=== PATIENT | male | born 1940 | race Caucasian/White ===

== ENCOUNTER → 2018-04-08 | Outpatient (CLI) | payer MEDICARE ==
--- NOTE | 2018-04-08 22:45 | CT ---
EXAMINATION TYPE: CT abdomen pelvis wo con DATE OF EXAM: 04/08/2018 COMPARISON: NONE INDICATION: Lower abd pain for a few weeks. DLP: 1205.3 mGycm, Automated exposure control for dose reduction was used. CONTRAST: 0 mL of Isovue 300. Study performed without Oral Contrast TECHNIQUE: Axial images were obtained from above the diaphragm to the pubic rami in the axial plane a t 5 mm thick sections. Reconstructed images are reviewed on the computer in the coronal plane. FINDINGS: Limited CT sections are obtained the lung bases. The lung bases are clear. CT ABDOMEN: Liver: Normal Spleen: Normal Pancreas: Normal Adrenal glands: The adrenal glands are normal. Gallbladder: Normal Kidneys: No masses are evident. No hydronephrosis is present. There is a 3.2 cm cyst measuring 14 H [place]unsfield units on the lateral left mid kidney. There is a 2.8 cm cyst measuring 17 Hounsfield units on the inferior pole right kidney. There is marked left hydronephrosis. Perinephric stranding is pre sent. Left hydroureter is present there is mild to moderate right hydronephrosis and hydroureter Aorta: Vascular calcification is within the aorta. Inferior vena cava: Normal. CT PELVIS: Loops of bowel within the abdomen and pelvis are normal. There are loops of bowel which are incom pletely distended or lack oral contrast limiting their evaluation. Appendix: Normal as visualized. Urinary bladder: There is marked distention of the urinary bladder. All of obstruction may be present . There is marked prominence of the prostate. Genitourinary structures: Prostate is very prominent and contains calcification. Prostate appears cecy ewhat lobulated suggesting possibility of underlying cancer. Elevated obstruction may be present. Add itional workup is recommended. Osseous structures: No suspicious lytic or sclerotic lesions. IMPRESSIONS: 1. Marked prominence of the prostate which appears mildly lobulated. Prostate cancer should be consi dered. This may be contributing to outlet obstruction of the urinary bladder. 2. Urinary bladder with marked distention. Severe left and moderate right hydronephrosis is present w ith hydroureter.
== END | disposition home or self-care (01) ==
LOC: RADCTMAIN 15:23
PROVIDERS: ATTEND Family Medicine
DX: N13.39 Other hydronephrosis (principal); N32.89 Other specified disorders of bladder; N42.9 Disorder of prostate, unspecified
CPT/HCPCS: 74176

== ENCOUNTER → 2018-05-12 | Outpatient (CLI) | payer MEDICARE ==
--- NOTE | 2018-05-12 11:11 | US ---
EXAMINATION TYPE: US kidneys/renal and bladder DATE OF EXAM: 05/12/2018 COMPARISON: CT abdomen and pelvis April 08, 2018 CLINICAL HISTORY: R33.9 Urinary Retention. EXAM MEASUREMENTS: Right Kidney: 9.9 x 5.2 x 6.7 cm Left Kidney: 11.6 x 5.8 x 5.2 cm Quinones catheter in place; patient could not find clamp to close for full bladder. No clamp found by c ursory look by technologist Right Kidney: No hydronephrosis or masses seen Left Kidney: 2.6 x 3.0 x 2.8 cm cyst anterior aspect Bladder: quinones There is no evidence for hydronephrosis at this point in time. Cortical thinning in both kidneys is p resent. There is 2.6 x 3.0 cm simple appearing cyst laterally left kidney redemonstrated . No nephrol ithiasis is seen. No masses are identified. Quinones catheter is placed within the bladder which is meagan s suboptimally evaluated. There is surrounding tissue may reflect location within prostatic urethra, correlate clinically. IMPRESSION: Suboptimal study with interval resolution of hydronephrosis bilaterally after Quinones catheterization.
== END | disposition home or self-care (01) ==
LOC: RADUSWWP 08:32
PROVIDERS: ATTEND Urology
DX: R33.9 Retention of urine, unspecified (principal)
CPT/HCPCS: 76770

== ENCOUNTER → 2018-06-27 | Outpatient (CLI) | payer MEDICARE ==
--- NOTE | 2018-06-27 15:13 | FL ---
EXAMINATION TYPE: FL voiding cystourethrogram DATE OF EXAM: 06/27/2018 2:01 PM COMPARISON: None HISTORY: S37.29X Bladder Rupture Preliminary film demonstrates only catheter in place. Bowel gas pattern is unremarkable. 2min 40sec fl time Approximately 300 cc of Cystografin was instilled into the urinary bladder in a retrograde manner. T he urinary bladder demonstrates a normal morphology and appearance. No filling defects are seen. Th ere is no evidence for reflux. There is no evidence for leak or bladder rupture. IMPRESSION: 1. No evidence for leak or bladder rupture at this time.
== END | disposition home or self-care (01) ==
LOC: RADFLWHC 13:20
PROVIDERS: ATTEND Urology
DX: S37.29XA Other injury of bladder, initial encounter (principal)
CPT/HCPCS: 74455; Q9962

== ENCOUNTER 2020-03-24 12:12 | Inpatient (IN) | payer MEDICARE ==
[2020-03-24 12:57] LABS: Basophils % (A) 0 %; Eosinophils # (A) 0.1 k/uL (0-0.7); Eosinophils % (A) 1 %; HCT 48.2 % (39.0-53.0); Lymphocytes # (A) 1.8 k/uL (1.0-4.8); Lymphocytes % (A) 13 %; MCH 31.1 pg (25.0-35.0); MCHC 33.1 g/dL (31.0-37.0); Mean Platelet Volume 9.2; Monocytes # (A) 0.8 k/uL (0-1.0); Monocytes % (A) 6 %; Neutrophils # (A) 10.4 k/uL (1.3-7.7); Neutrophils % (A) 79 %; Platelet Count 201 k/uL (150-450); RBC 5.13 m/uL (4.30-5.90); RDW 12.9 % (11.5-15.5); WBC 13.3 k/uL (3.8-10.6)
[2020-03-24 13:07] LABS: Albumin 4.2 g/dL (3.5-5.0); Calcium 9.3 mg/dL (8.4-10.2); Magnesium 2.1 mg/dL (1.6-2.3); Potassium 4.7 mmol/L (3.5-5.1); Total Bilirubin 1.3 mg/dL (0.2-1.3); Total Protein 7.5 g/dL (6.3-8.2)
[2020-03-24 13:10] LABS: INR 1.3 (<1.2); Partial Thromboplastin Time 23.5 sec (22.0-30.0); Prothrombin Time 13.2 sec (9.0-12.0)
--- NOTE | 2020-03-24 13:34 | ED ---
SOB HPI - General Chief Complaint: Shortness of Breath Stated Complaint: Memory loss Time Seen by Provider: 03/24/20 12:18 Source: patient Mode of arrival: wheelchair Limitations: no limitations - History of Present Illness Initial Comments: Patient is a 71-year-old male who presents to the emergency room in with reported shortness of breath, dizziness and lightheadedness when standing. Patient states the symptoms have been present for the past several months however they're progressively getting worse. He did have a neighbor who was at his house he noted he was short of breath. He did recommend he come in to the emergency room for evaluation. The patient is a poor historian. Unsure of his medications or medical history. He denies a history of COPD. No history of DVT or PE. Has history of A. fib however no OK. Patient takes Coumadin. He admits to a mild headache and pressure upon standing. Denies any current headache. No chest pain. No cough or hemoptysis. No ripping or tearing sensation to the back. Neighbor notes that the patient has had more confusion recently. The patient denies any changes in his bowel or bladder habits. There are no alleviating, precipitating or modifying factors - Related Data Home Medications Medication Instructions Recorded Confirmed Allopurinol [Zyloprim] 100 mg PO DAILY 03/24/20 03/24/20 Atenolol [Tenormin] 50 mg PO BID 03/24/20 03/24/20 Atorvastatin [Lipitor] 40 mg PO DAILY 03/24/20 03/24/20 Enalapril [Vasotec] 5 mg PO DAILY 03/24/20 03/24/20 Furosemide [Lasix] 40 mg PO DAILY 03/24/20 03/24/20 Levothyroxine Sodium [Synthroid] 112 mcg PO DAILY 03/24/20 03/24/20 Potassium Chloride ER [K-Dur 20] 20 meq PO BID 03/24/20 03/24/20 Tamsulosin HCl [Flomax] 0.4 mg PO DAILY 03/24/20 03/24/20 Warfarin [Coumadin] 2.5 mg PO SUMOWEFR 03/24/20 03/24/20 Warfarin [Coumadin] 5 mg PO TUTHSA 03/24/20 03/24/20 Allergies Allergy/AdvReac Type Severity Reaction Status Date / Time No Known Allergies Allergy Verified 03/24/20 18:19 Review of Systems ROS Statement: Those systems with pertinent positive or pertinent negative responses have been documented in the HPI. ROS Other: All systems not noted in ROS Statement are negative. Past Medical History Past Medical History: Unable to Obtain History of Any Multi-Drug Resistant Organisms: None Reported Past Surgical History: Unable to Obtain Past Psychological History: Unable to Obtain Smoking Status: Former smoker Past Alcohol Use History: None Reported Past Drug Use History: None Reported - Past Family History Mother Additional Family Medical History / Comment(s): of old age Brother(s) Family Medical History: Cancer, Coronary Artery Disease (CAD) General Exam Limitations: no limitations General appearance: alert, in no apparent distress Head exam: Present: atraumatic, normocephalic, normal inspection Eye exam: Present: normal appearance, PERRL, EOMI. Absent: scleral icterus, conjunctival injection, periorbital swelling ENT exam: Present: normal exam, mucous membranes moist Neck exam: Present: normal inspection. Absent: tenderness, meningismus, lymphadenopathy Respiratory exam: Present: normal lung sounds bilaterally. Absent: respiratory distress, wheezes, rales, rhonchi, stridor Cardiovascular Exam: Present: regular rate, normal rhythm, normal heart sounds. Absent: systolic murmur, diastolic murmur, rubs, gallop, clicks GI/Abdominal exam: Present: soft, normal bowel sounds. Absent: distended, tenderness, guarding, rebound, rigid Extremities exam: Present: normal inspection, full ROM, normal capillary refill. Absent: tenderness, pedal edema, joint swelling, calf tenderness Back exam: Present: normal inspection Neurological exam: Present: alert, oriented X3, CN II-XII intact Psychiatric exam: Present: normal affect, normal mood Skin exam: Present: warm, dry, intact, normal color. Absent: rash Course Vital Signs 03/24/20 03/24/20 03/24/20 12:15 14:56 15:55 Temperature 97.6 F Pulse Rate 80 81 80 Pulse Rate [ Pulse Oximetery ] Respiratory 18 16 Rate Blood Pressure 119/83 120/80 Blood Pressure [Left Arm] O2 Sat by Pulse 96 99 Oximetry 03/24/20 03/24/20 03/24/20 16:04 17:28 17:54 Temperature 98.0 F Pulse Rate 62 86 Pulse Rate [ 92 Pulse Oximetery ] Respiratory 16 20 Rate Blood Pressure 118/79 Blood Pressure 122/86 [Left Arm] O2 Sat by Pulse 99 95 Oximetry Medical Decision Making - Medical Decision Making Upon arrival the patient was placed into room 5. A thorough History and physical exam is performed. 12-lead EKG is performed which demonstrates keep inverted T waves in V1 through V4. Patient having any chest pain at this time. Peripheral IV established. Laboratory studies were conducted. Patient had a chest x-ray performed. Laboratory studies are remarkable for a leukocytosis of 13.3. INR subtherapeutic at 1.3. Creatinine 1.4 which is normal for the patient. UA shows large esterase and rare bacteria. Chest x-ray demonstrates no acute intrathoracic process. The patient was given a DuoNeb breathing treatment as he is diffusely wheezy. He is to supplement with 125 mg Solu-M edrol. Recommend hospital admission for continued breathing treatments and echo. Patient did agree to this. I discussed case with Dr. Man who accept admission. Patient remained in stable condition and was transported to floor - Lab Data Result diagrams: 03/26/20 07:05 03/26/20 15:16 Lab Results 03/24/20 03/24/20 03/24/20 Range/Units 12:35 12:35 12:35 WBC 13.3 H (3.8-10.6) k/uL RBC 5.13 (4.30-5.90) m/uL Hgb 16.0 (13.0-17.5) gm/dL Hct 48.2 (39.0-53.0) % MCV 94.0 (80.0-100.0) fL MCH 31.1 (25.0-35.0) pg MCHC 33.1 (31.0-37.0) g/dL RDW 12.9 (11.5-15.5) % Plt Count 201 (150-450) k/uL Neutrophils % 79 % Lymphocytes % 13 % Monocytes % 6 % Eosinophils % 1 % Basophils % 0 % Neutrophils # 10.4 H (1.3-7.7) k/uL Lymphocytes # 1.8 (1.0-4.8) k/uL Monocytes # 0.8 (0-1.0) k/uL Eosinophils # 0.1 (0-0.7) k/uL Basophils # 0.0 (0-0.2) k/uL Hypochromasia PT 13.2 H (9.0-12.0) sec INR 1.3 H (<1.2) APTT 23.5 (22.0-30.0) sec D-Dimer (<0.60) mg/L FEU Sodium 139 (137-145) mmol/L Potassium 4.7 (3.5-5.1) mmol/L Chloride 101 (98-107) mmol/L Carbon Dioxide 27 (22-30) mmol/L Anion Gap 11 mmol/L BUN 33 H (9-20) mg/dL Creatinine 1.40 H (0.66-1.25) mg/dL Est GFR (CKD-EPI)AfAm 55 (>60 ml/min/1.73 sqM) Est GFR (CKD-EPI)NonAf 48 (>60 ml/min/1.73 sqM) Glucose 179 H (74-99) mg/dL POC Glucose (mg/dL) (75-99) mg/dL POC Glu Final Inspector Movement Assembly ID Estimated Ave Glu mg/dL Hemoglobin A1c (4.0-6.0) % Plasma Lactic Acid Db (0.7-2.0) mmol/L Calcium 9.3 (8.4-10.2) mg/dL Magnesium 2.1 (1.6-2.3) mg/dL Total Bilirubin 1.3 (0.2-1.3) mg/dL AST 27 (17-59) U/L ALT 25 (4-49) U/L Alkaline Phosphatase 102 (38-126) U/L Creatine Kinase 51 L (55-170) U/L Troponin I (0.000-0.034) ng/mL NT-Pro-B Natriuret Pep pg/mL Total Protein 7.5 (6.3-8.2) g/dL Albumin 4.2 (3.5-5.0) g/dL Urine Color Urine Appearance (Clear) Urine pH (5.0-8.0) Ur Specific [place] (1.001-1.035) Urine Protein (Negative) Urine Glucose (UA) (Negative) Urine Ketones (Negative) Urine Blood (Negative) Urine Nitrite (Negative) Urine Bilirubin (Negative) Urine Urobilinogen (<2.0) mg/dL Ur Leukocyte Esterase (Negative) Urine RBC (0-5) /hpf Urine WBC (0-5) /hpf Ur Squamous Epith Cells (0-4) /hpf Urine Bacteria (None) /hpf Hyaline Casts (0-2) /lpf Urine Mucus (None) /hpf Coronavirus (PCR) (Not Detected) 03/24/20 03/24/20 03/24/20 Range/Units 12:35 12:35 12:35 WBC (3.8-10.6) k/uL RBC (4.30-5.90) m/uL Hgb (13.0-17.5) gm/dL Hct (39.0-53.0) % MCV (80.0-100.0) fL MCH (25.0-35.0) pg MCHC (31.0-37.0) g/dL RDW (11.5-15.5) % Plt Count (150-450) k/uL Neutrophils % % Lymphocytes % % Monocytes % % Eosinophils % % Basophils % % Neutrophils # (1.3-7.7) k/uL Lymphocytes # (1.0-4.8) k/uL Monocytes # (0-1.0) k/uL Eosinophils # (0-0.7) k/uL Basophils # (0-0.2) k/uL Hypochromasia PT (9.0-12.0) sec INR (<1.2) APTT (22.0-30.0) sec D-Dimer (<0.60) mg/L FEU Sodium (137-145) mmol/L Potassium (3.5-5.1) mmol/L Chloride (98-107) mmol/L Carbon Dioxide (22-30) mmol/L Anion Gap mmol/L BUN (9-20) mg/dL Creatinine (0.66-1.25) mg/dL Est GFR (CKD-EPI)AfAm (>60 ml/min/1.73 sqM) Est GFR (CKD-EPI)NonAf (>60 ml/min/1.73 sqM) Glucose (74-99) mg/dL POC Glucose (mg/dL) (75-99) mg/dL POC Glu Final Inspector Movement Assembly ID Estimated Ave Glu mg/dL Hemoglobin A1c (4.0-6.0) % Plasma Lactic Acid Db 1.8 (0.7-2.0) mmol/L Calcium (8.4-10.2) mg/dL Magnesium (1.6-2.3) mg/dL Total Bilirubin (0.2-1.3) mg/dL AST (17-59) U/L ALT (4-49) U/L Alkaline Phosphatase (38-126) U/L Creatine Kinase (55-170) U/L Troponin I 0.015 (0.000-0.034) ng/mL NT-Pro-B Natriuret Pep 4450 pg/mL Total Protein (6.3-8.2) g/dL Albumin (3.5-5.0) g/dL Urine Color Urine Appearance (Clear) Urine pH (5.0-8.0) Ur Specific [place] (1.001-1.035) Urine Protein (Negative) Urine Glucose (UA) (Negative) Urine Ketones (Negative) Urine Blood (Negative) Urine Nitrite (Negative) Urine Bilirubin (Negative) Urine Urobilinogen (<2.0) mg/dL Ur Leukocyte Esterase (Negative) Urine RBC (0-5) /hpf Urine WBC (0-5) /hpf Ur Squamous Epith Cells (0-4) /hpf Urine Bacteria (None) /hpf Hyaline Casts (0-2) /lpf Urine Mucus (None) /hpf Coronavirus (PCR) (Not Detected) 03/24/20 03/24/20 03/24/20 Range/Units 15:45 17:00 18:04 WBC (3.8-10.6) k/uL RBC (4.30-5.90) m/uL Hgb (13.0-17.5) gm/dL Hct (39.0-53.0) % MCV (80.0-100.0) fL MCH (25.0-35.0) pg MCHC (31.0-37.0) g/dL RDW (11.5-15.5) % Plt Count (150-450) k/uL Neutrophils % % Lymphocytes % % Monocytes % % Eosinophils % % Basophils % % Neutrophils # (1.3-7.7) k/uL Lymphocytes # (1.0-4.8) k/uL Monocytes # (0-1.0) k/uL Eosinophils # (0-0.7) k/uL Basophils # (0-0.2) k/uL Hypochromasia PT (9.0-12.0) sec INR (<1.2) APTT (22.0-30.0) sec D-Dimer (<0.60) mg/L FEU Sodium (137-145) mmol/L Potassium (3.5-5.1) mmol/L Chloride (98-107) mmol/L Carbon Dioxide (22-30) mmol/L Anion Gap mmol/L BUN (9-20) mg/dL Creatinine (0.66-1.25) mg/dL Est GFR (CKD-EPI)AfAm (>60 ml/min/1.73 sqM) Est GFR (CKD-EPI)NonAf (>60 ml/min/1.73 sqM) Glucose (74-99) mg/dL POC Glucose (mg/dL) (75-99) mg/dL POC Glu Final Inspector Movement Assembly ID Estimated Ave Glu mg/dL Hemoglobin A1c (4.0-6.0) % Plasma Lactic Acid Db (0.7-2.0) mmol/L Calcium (8.4-10.2) mg/dL Magnesium (1.6-2.3) mg/dL Total Bilirubin (0.2-1.3) mg/dL AST (17-59) U/L ALT (4-49) U/L Alkaline Phosphatase (38-126) U/L Creatine Kinase (55-170) U/L Troponin I 0.014 (0.000-0.034) ng/mL NT-Pro-B Natriuret Pep pg/mL Total Protein (6.3-8.2) g/dL Albumin (3.5-5.0) g/dL Urine Color Yellow Urine Appearance Clear (Clear) Urine pH 5.0 (5.0-8.0) Ur Specific [place] 1.014 (1.001-1.035) Urine Protein Negative (Negative) Urine Glucose (UA) Negative (Negative) Urine Ketones Negative (Negative) Urine Blood Negative (Negative) Urine Nitrite Negative (Negative) Urine Bilirubin Negative (Negative) Urine Urobilinogen <2.0 (<2.0) mg/dL Ur Leukocyte Esterase Large H (Negative) Urine RBC 2 (0-5) /hpf Urine WBC 13 H (0-5) /hpf Ur Squamous Epith Cells <1 (0-4) /hpf Urine Bacteria Rare H (None) /hpf Hyaline Casts 6 H (0-2) /lpf Urine Mucus Occasional H (None) /hpf Coronavirus (PCR) Not Detected (Not Detected) 03/25/20 03/25/20 03/25/20 Range/Units 00:47 06:43 06:43 WBC 11.7 H (3.8-10.6) k/uL RBC 5.02 (4.30-5.90) m/uL Hgb 14.5 (13.0-17.5) gm/dL Hct 47.2 (39.0-53.0) % MCV 94.1 (80.0-100.0) fL MCH 28.9 (25.0-35.0) pg MCHC 30.7 L (31.0-37.0) g/dL RDW 12.6 (11.5-15.5) % Plt Count 202 (150-450) k/uL Neutrophils % 88 % Lymphocytes % 8 % Monocytes % 3 % Eosinophils % 0 % Basophils % 0 % Neutrophils # 10.4 H (1.3-7.7) k/uL Lymphocytes # 0.9 L (1.0-4.8) k/uL Monocytes # 0.4 (0-1.0) k/uL Eosinophils # 0.0 (0-0.7) k/uL Basophils # 0.0 (0-0.2) k/uL Hypochromasia PT (9.0-12.0) sec INR (<1.2) APTT (22.0-30.0) sec D-Dimer (<0.60) mg/L FEU Sodium 138 (137-145) mmol/L Potassium 4.8 (3.5-5.1) mmol/L Chloride 100 (98-107) mmol/L Carbon Dioxide 28 (22-30) mmol/L Anion Gap 10 mmol/L BUN 33 H (9-20) mg/dL Creatinine 1.27 H (0.66-1.25) mg/dL Est GFR (CKD-EPI)AfAm 62 (>60 ml/min/1.73 sqM) Est GFR (CKD-EPI)NonAf 54 (>60 ml/min/1.73 sqM) Glucose 256 H (74-99) mg/dL POC Glucose (mg/dL) (75-99) mg/dL POC Glu Final Inspector Movement Assembly ID Estimated Ave Glu mg/dL Hemoglobin A1c (4.0-6.0) % Plasma Lactic Acid Db (0.7-2.0) mmol/L Calcium 9.0 (8.4-10.2) mg/dL Magnesium (1.6-2.3) mg/dL Total Bilirubin 0.7 (0.2-1.3) mg/dL AST 29 (17-59) U/L ALT 33 (4-49) U/L Alkaline Phosphatase 115 (38-126) U/L Creatine Kinase (55-170) U/L Troponin I <0.012 (0.000-0.034) ng/mL NT-Pro-B Natriuret Pep pg/mL Total Protein 6.8 (6.3-8.2) g/dL Albumin 3.6 (3.5-5.0) g/dL Urine Color Urine Appearance (Clear) Urine pH (5.0-8.0) Ur Specific [place] (1.001-1.035) Urine Protein (Negative) Urine Glucose (UA) (Negative) Urine Ketones (Negative) Urine Blood (Negative) Urine Nitrite (Negative) Urine Bilirubin (Negative) Urine Urobilinogen (<2.0) mg/dL Ur Leukocyte Esterase (Negative) Urine RBC (0-5) /hpf Urine WBC (0-5) /hpf Ur Squamous Epith Cells (0-4) /hpf Urine Bacteria (None) /hpf Hyaline Casts (0-2) /lpf Urine Mucus (None) /hpf Coronavirus (PCR) (Not Detected) 03/25/20 03/25/20 03/25/20 Range/Units 06:43 11:38 12:44 WBC (3.8-10.6) k/uL RBC (4.30-5.90) m/uL Hgb (13.0-17.5) gm/dL Hct (39.0-53.0) % MCV (80.0-100.0) fL MCH (25.0-35.0) pg MCHC (31.0-37.0) g/dL RDW (11.5-15.5) % Plt Count (150-450) k/uL Neutrophils % % Lymphocytes % % Monocytes % % Eosinophils % % Basophils % % Neutrophils # (1.3-7.7) k/uL Lymphocytes # (1.0-4.8) k/uL Monocytes # (0-1.0) k/uL Eosinophils # (0-0.7) k/uL Basophils # (0-0.2) k/uL Hypochromasia PT 17.6 H (9.0-12.0) sec INR 1.8 H (<1.2) APTT (22.0-30.0) sec D-Dimer 27.12 H (<0.60) mg/L FEU Sodium (137-145) mmol/L Potassium (3.5-5.1) mmol/L Chloride (98-107) mmol/L Carbon Dioxide (22-30) mmol/L Anion Gap mmol/L BUN (9-20) mg/dL Creatinine (0.66-1.25) mg/dL Est GFR (CKD-EPI)AfAm (>60 ml/min/1.73 sqM) Est GFR (CKD-EPI)NonAf (>60 ml/min/1.73 sqM) Glucose (74-99) mg/dL POC Glucose (mg/dL) 318 H (75-99) mg/dL POC Glu Final Inspector Movement Assembly ID Ronna Nichole Estimated Ave Glu mg/dL Hemoglobin A1c (4.0-6.0) % Plasma Lactic Acid Db (0.7-2.0) mmol/L Calcium (8.4-10.2) mg/dL Magnesium (1.6-2.3) mg/dL Total Bilirubin (0.2-1.3) mg/dL AST (17-59) U/L ALT (4-49) U/L Alkaline Phosphatase (38-126) U/L Creatine Kinase (55-170) U/L Troponin I (0.000-0.034) ng/mL NT-Pro-B Natriuret Pep pg/mL Total Protein (6.3-8.2) g/dL Albumin (3.5-5.0) g/dL Urine Color Urine Appearance (Clear) Urine pH (5.0-8.0) Ur Specific [place] (1.001-1.035) Urine Protein (Negative) Urine Glucose (UA) (Negative) Urine Ketones (Negative) Urine Blood (Negative) Urine Nitrite (Negative) Urine Bilirubin (Negative) Urine Urobilinogen (<2.0) mg/dL Ur Leukocyte Esterase (Negative) Urine RBC (0-5) /hpf Urine WBC (0-5) /hpf Ur Squamous Epith Cells (0-4) /hpf Urine Bacteria (None) /hpf Hyaline Casts (0-2) /lpf Urine Mucus (None) /hpf Coronavirus (PCR) (Not Detected) 03/25/20 03/25/20 03/25/20 Range/Units 14:42 16:54 18:01 WBC 19.1 H (3.8-10.6) k/uL RBC 5.07 (4.30-5.90) m/uL Hgb 15.9 (13.0-17.5) gm/dL Hct 48.3 (39.0-53.0) % MCV 95.3 (80.0-100.0) fL MCH 31.3 (25.0-35.0) pg MCHC 32.9 (31.0-37.0) g/dL RDW 12.6 (11.5-15.5) % Plt Count 213 (150-450) k/uL Neutrophils % 90 % Lymphocytes % 5 % Monocytes % 4 % Eosinophils % 0 % Basophils % 0 % Neutrophils # 17.2 H (1.3-7.7) k/uL Lymphocytes # 0.9 L (1.0-4.8) k/uL Monocytes # 0.8 (0-1.0) k/uL Eosinophils # 0.0 (0-0.7) k/uL Basophils # 0.1 (0-0.2) k/uL Hypochromasia Slight PT (9.0-12.0) sec INR (<1.2) APTT (22.0-30.0) sec D-Dimer (<0.60) mg/L FEU Sodium (137-145) mmol/L Potassium (3.5-5.1) mmol/L Chloride (98-107) mmol/L Carbon Dioxide (22-30) mmol/L Anion Gap mmol/L BUN (9-20) mg/dL Creatinine (0.66-1.25) mg/dL Est GFR (CKD-EPI)AfAm (>60 ml/min/1.73 sqM) Est GFR (CKD-EPI)NonAf (>60 ml/min/1.73 sqM) Glucose (74-99) mg/dL POC Glucose (mg/dL) 298 H 333 H (75-99) mg/dL POC Glu Final Inspector Movement Assembly Neena Morales Sharay Estimated Ave Glu mg/dL Hemoglobin A1c (4.0-6.0) % Plasma Lactic Acid Db (0.7-2.0) mmol/L Calcium (8.4-10.2) mg/dL Magnesium (1.6-2.3) mg/dL Total Bilirubin (0.2-1.3) mg/dL AST (17-59) U/L ALT (4-49) U/L Alkaline Phosphatase (38-126) U/L Creatine Kinase (55-170) U/L Troponin I (0.000-0.034) ng/mL NT-Pro-B Natriuret Pep pg/mL Total Protein (6.3-8.2) g/dL Albumin (3.5-5.0) g/dL Urine Color Urine Appearance (Clear) Urine pH (5.0-8.0) Ur Specific [place] (1.001-1.035) Urine Protein (Negative) Urine Glucose (UA) (Negative) Urine Ketones (Negative) Urine Blood (Negative) Urine Nitrite (Negative) Urine Bilirubin (Negative) Urine Urobilinogen (<2.0) mg/dL Ur Leukocyte Esterase (Negative) Urine RBC (0-5) /hpf Urine WBC (0-5) /hpf Ur Squamous Epith Cells (0-4) /hpf Urine Bacteria (None) /hpf Hyaline Casts (0-2) /lpf Urine Mucus (None) /hpf Coronavirus (PCR) (Not Detected) 03/25/20 03/25/20 03/25/20 Range/Units 18:01 21:29 23:26 WBC (3.8-10.6) k/uL RBC (4.30-5.90) m/uL Hgb (13.0-17.5) gm/dL Hct (39.0-53.0) % MCV (80.0-100.0) fL MCH (25.0-35.0) pg MCHC (31.0-37.0) g/dL RDW (11.5-15.5) % Plt Count (150-450) k/uL Neutrophils % % Lymphocytes % % Monocytes % % Eosinophils % % Basophils % % Neutrophils # (1.3-7.7) k/uL Lymphocytes # (1.0-4.8) k/uL Monocytes # (0-1.0) k/uL Eosinophils # (0-0.7) k/uL Basophils # (0-0.2) k/uL Hypochromasia PT 31.1 H (9.0-12.0) sec INR 3.2 H (<1.2) APTT 124.1 H* 47.9 H (22.0-30.0) sec D-Dimer (<0.60) mg/L FEU Sodium (137-145) mmol/L Potassium (3.5-5.1) mmol/L Chloride (98-107) mmol/L Carbon Dioxide (22-30) mmol/L Anion Gap mmol/L BUN (9-20) mg/dL Creatinine (0.66-1.25) mg/dL Est GFR (CKD-EPI)AfAm (>60 ml/min/1.73 sqM) Est GFR (CKD-EPI)NonAf (>60 ml/min/1.73 sqM) Glucose (74-99) mg/dL POC Glucose (mg/dL) 233 H (75-99) mg/dL POC Glu Final Inspector Movement Assembly ID AdalRosy Estimated Ave Glu mg/dL Hemoglobin A1c (4.0-6.0) % Plasma Lactic Acid Db (0.7-2.0) mmol/L Calcium (8.4-10.2) mg/dL Magnesium (1.6-2.3) mg/dL Total Bilirubin (0.2-1.3) mg/dL AST (17-59) U/L ALT (4-49) U/L Alkaline Phosphatase (38-126) U/L Creatine Kinase (55-170) U/L Troponin I (0.000-0.034) ng/mL NT-Pro-B Natriuret Pep pg/mL Total Protein (6.3-8.2) g/dL Albumin (3.5-5.0) g/dL Urine Color Urine Appearance (Clear) Urine pH (5.0-8.0) Ur Specific [place] (1.001-1.035) Urine Protein (Negative) Urine Glucose (UA) (Negative) Urine Ketones (Negative) Urine Blood (Negative) Urine Nitrite (Negative) Urine Bilirubin (Negative) Urine Urobilinogen (<2.0) mg/dL Ur Leukocyte Esterase (Negative) Urine RBC (0-5) /hpf Urine WBC (0-5) /hpf Ur Squamous Epith Cells (0-4) /hpf Urine Bacteria (None) /hpf Hyaline Casts (0-2) /lpf Urine Mucus (None) /hpf Coronavirus (PCR) (Not Detected) 03/25/20 03/26/20 03/26/20 Range/Units 23:26 07:04 07:05 WBC (3.8-10.6) k/uL RBC (4.30-5.90) m/uL Hgb (13.0-17.5) gm/dL Hct (39.0-53.0) % MCV (80.0-100.0) fL MCH (25.0-35.0) pg MCHC (31.0-37.0) g/dL RDW (11.5-15.5) % Plt Count (150-450) k/uL Neutrophils % % Lymphocytes % % Monocytes % % Eosinophils % % Basophils % % Neutrophils # (1.3-7.7) k/uL Lymphocytes # (1.0-4.8) k/uL Monocytes # (0-1.0) k/uL Eosinophils # (0-0.7) k/uL Basophils # (0-0.2) k/uL Hypochromasia PT 28.8 H (9.0-12.0) sec INR 2.9 H (<1.2) APTT (22.0-30.0) sec D-Dimer (<0.60) mg/L FEU Sodium (137-145) mmol/L Potassium (3.5-5.1) mmol/L Chloride (98-107) mmol/L Carbon Dioxide (22-30) mmol/L Anion Gap mmol/L BUN (9-20) mg/dL Creatinine (0.66-1.25) mg/dL Est GFR (CKD-EPI)AfAm (>60 ml/min/1.73 sqM) Est GFR (CKD-EPI)NonAf (>60 ml/min/1.73 sqM) Glucose (74-99) mg/dL POC Glucose (mg/dL) 132 H (75-99) mg/dL POC Glu Final Inspector Movement Assembly ID Marleni Lock Estimated Ave Glu mg/dL 154 Hemoglobin A1c 7.0 H (4.0-6.0) % Plasma Lactic Acid Db (0.7-2.0) mmol/L Calcium (8.4-10.2) mg/dL Magnesium (1.6-2.3) mg/dL Total Bilirubin (0.2-1.3) mg/dL AST (17-59) U/L ALT (4-49) U/L Alkaline Phosphatase (38-126) U/L Creatine Kinase (55-170) U/L Troponin I (0.000-0.034) ng/mL NT-Pro-B Natriuret Pep pg/mL Total Protein (6.3-8.2) g/dL Albumin (3.5-5.0) g/dL Urine Color Urine Appearance (Clear) Urine pH (5.0-8.0) Ur Specific [place] (1.001-1.035) Urine Protein (Negative) Urine Glucose (UA) (Negative) Urine Ketones (Negative) Urine Blood (Negative) Urine Nitrite (Negative) Urine Bilirubin (Negative) Urine Urobilinogen (<2.0) mg/dL Ur Leukocyte Esterase (Negative) Urine RBC (0-5) /hpf Urine WBC (0-5) /hpf Ur Squamous Epith Cells (0-4) /hpf Urine Bacteria (None) /hpf Hyaline Casts (0-2) /lpf Urine Mucus (None) /hpf Coronavirus (PCR) (Not Detected) 03/26/20 03/26/20 03/26/20 Range/Units 07:05 07:05 07:05 WBC 20.9 H (3.8-10.6) k/uL RBC 5.00 (4.30-5.90) m/uL Hgb 15.5 (13.0-17.5) gm/dL Hct 46.5 (39.0-53.0) % MCV 92.9 (80.0-100.0) fL MCH 31.0 (25.0-35.0) pg MCHC 33.4 (31.0-37.0) g/dL RDW 12.6 (11.5-15.5) % Plt Count 217 (150-450) k/uL Neutrophils % 90 % Lymphocytes % 5 % Monocytes % 3 % Eosinophils % 0 % Basophils % 0 % Neutrophils # 18.9 H (1.3-7.7) k/uL Lymphocytes # 1.1 (1.0-4.8) k/uL Monocytes # 0.7 (0-1.0) k/uL Eosinophils # 0.0 (0-0.7) k/uL Basophils # 0.0 (0-0.2) k/uL Hypochromasia PT 16.8 H (9.0-12.0) sec INR 1.7 H (<1.2) APTT (22.0-30.0) sec D-Dimer (<0.60) mg/L FEU Sodium 139 (137-145) mmol/L Potassium 4.3 (3.5-5.1) mmol/L Chloride 100 (98-107) mmol/L Carbon Dioxide 28 (22-30) mmol/L Anion Gap 11 mmol/L BUN 41 H (9-20) mg/dL Creatinine 1.37 H (0.66-1.25) mg/dL Est GFR (CKD-EPI)AfAm 57 (>60 ml/min/1.73 sqM) Est GFR (CKD-EPI)NonAf 49 (>60 ml/min/1.73 sqM) Glucose 137 H (74-99) mg/dL POC Glucose (mg/dL) (75-99) mg/dL POC Glu Final Inspector Movement Assembly ID Estimated Ave Glu mg/dL Hemoglobin A1c (4.0-6.0) % Plasma Lactic Acid Db (0.7-2.0) mmol/L Calcium 9.3 (8.4-10.2) mg/dL Magnesium (1.6-2.3) mg/dL Total Bilirubin 0.6 (0.2-1.3) mg/dL AST 64 H (17-59) U/L ALT 69 H (4-49) U/L Alkaline Phosphatase 123 (38-126) U/L Creatine Kinase (55-170) U/L Troponin I (0.000-0.034) ng/mL NT-Pro-B Natriuret Pep pg/mL Total Protein 7.1 (6.3-8.2) g/dL Albumin 3.8 (3.5-5.0) g/dL Urine Color Urine Appearance (Clear) Urine pH (5.0-8.0) Ur Specific [place] (1.001-1.035) Urine Protein (Negative) Urine Glucose (UA) (Negative) Urine Ketones (Negative) Urine Blood (Negative) Urine Nitrite (Negative) Urine Bilirubin (Negative) Urine Urobilinogen (<2.0) mg/dL Ur Leukocyte Esterase (Negative) Urine RBC (0-5) /hpf Urine WBC (0-5) /hpf Ur Squamous Epith Cells (0-4) /hpf Urine Bacteria (None) /hpf Hyaline Casts (0-2) /lpf Urine Mucus (None) /hpf Coronavirus (PCR) (Not Detected) 03/26/20 Range/Units 07:05 WBC (3.8-10.6) k/uL RBC (4.30-5.90) m/uL Hgb (13.0-17.5) gm/dL Hct (39.0-53.0) % MCV (80.0-100.0) fL MCH (25.0-35.0) pg MCHC (31.0-37.0) g/dL RDW (11.5-15.5) % Plt Count (150-450) k/uL Neutrophils % % Lymphocytes % % Monocytes % % Eosinophils % % Basophils % % Neutrophils # (1.3-7.7) k/uL Lymphocytes # (1.0-4.8) k/uL Monocytes # (0-1.0) k/uL Eosinophils # (0-0.7) k/uL Basophils # (0-0.2) k/uL Hypochromasia PT (9.0-12.0) sec INR (<1.2) APTT 38.7 H (22.0-30.0) sec D-Dimer (<0.60) mg/L FEU Sodium (137-145) mmol/L Potassium (3.5-5.1) mmol/L Chloride (98-107) mmol/L Carbon Dioxide (22-30) mmol/L Anion Gap mmol/L BUN (9-20) mg/dL Creatinine (0.66-1.25) mg/dL Est GFR (CKD-EPI)AfAm (>60 ml/min/1.73 sqM) Est GFR (CKD-EPI)NonAf (>60 ml/min/1.73 sqM) Glucose (74-99) mg/dL POC Glucose (mg/dL) (75-99) mg/dL POC Glu Final Inspector Movement Assembly ID Estimated Ave Glu mg/dL Hemoglobin A1c (4.0-6.0) % Plasma Lactic Acid Db (0.7-2.0) mmol/L Calcium (8.4-10.2) mg/dL Magnesium (1.6-2.3) mg/dL Total Bilirubin (0.2-1.3) mg/dL AST (17-59) U/L ALT (4-49) U/L Alkaline Phosphatase (38-126) U/L Creatine Kinase (55-170) U/L Troponin I (0.000-0.034) ng/mL NT-Pro-B Natriuret Pep pg/mL Total Protein (6.3-8.2) g/dL Albumin (3.5-5.0) g/dL Urine Color Urine Appearance (Clear) Urine pH (5.0-8.0) Ur Specific [place] (1.001-1.035) Urine Protein (Negative) Urine Glucose (UA) (Negative) Urine Ketones (Negative) Urine Blood (Negative) Urine Nitrite (Negative) Urine Bilirubin (Negative) Urine Urobilinogen (<2.0) mg/dL Ur Leukocyte Esterase (Negative) Urine RBC (0-5) /hpf Urine WBC (0-5) /hpf Ur Squamous Epith Cells (0-4) /hpf Urine Bacteria (None) /hpf Hyaline Casts (0-2) /lpf Urine Mucus (None) /hpf Coronavirus (PCR) (Not Detected) - EKG Data EKG Comments: EKG demonstrates atrial fibrillation with a rate of 73. QRS 90. QTC of 500. Diffuse inverted T waves in V1 through V5. No old EKG for comparison Disposition Clinical Impression: Acute respiratory insufficiency, On Coumadin for atrial fibrillation, Subtherapeutic anticoagulation Disposition: ADMITTED IP TO THIS HOSP Condition: Stable Is patient prescribed a controlled substance at d/c from ED?: No Decision to Admit Reason: Admit from EC Decision Date: 03/24/20 Decision Time: 15:55
--- NOTE | 2020-03-24 13:42 | CT ---
EXAMINATION TYPE: CT brain wo con DATE OF EXAM: 03/24/2020 COMPARISON: None HISTORY: headache CT DLP: 1008.4 mGycm Automated exposure control for dose reduction was used. TECHNIQUE: CT scan of the head is performed without contrast. FINDINGS: Large area of encephalomalacia is seen in the left frontal lobe and insular cortex from volodymyr or injury. Encephalomalacia is also seen in the left occipital lobe and right parietal lobe. Confluen t areas of hypoattenuation are seen in the periventricular and subcortical white matter. Extensive at herosclerosis of the intracranial vasculature. Age-related volume loss is seen in the supratentorial and infratentorial regions. No acute infarct intracranial hemorrhage or midline shift seen. Small sca lp contusion of the posterior parietal-occipital region near the skull vertex on image 43. The calvarium is intact. Visualized paranasal sinuses and mastoid air cells are well aerated. IMPRESSION: 1. No acute intracranial hemorrhage or midline shift. 2. Multiple areas of encephalomalacia in the right parietal lobe, left frontal lobe, and left occipit al lobe from prior injury. 3. Severe burden nonspecific white matter change, most commonly on the basis of chronic microangiopat hy and extensive atherosclerosis of the intracranial vasculature. Age-related volume loss.
--- NOTE | 2020-03-24 14:32 | XR ---
EXAMINATION TYPE: XR chest 2V DATE OF EXAM: 03/24/2020 COMPARISON: 03/13/2015 HISTORY: Increased shortness of breath and cough TECHNIQUE: Frontal and lateral views of the chest are obtained. FINDINGS: There is an enlarged cardiac mediastinal silhouette with post CABG change. Eventration of the hemidiaphragms is noted. No new focal consolidation, pleural effusion or pneumothorax. Moderate d egenerative change of the spine. Chronic scarring in the right midlung. IMPRESSION: Chronic changes with no acute cardiopulmonary process.
[2020-03-24] MEDS ORDERED: IPRATROPIUM-ALBUTEROL 3 ML NEB INHALATION STA (15:28)
[2020-03-24] MEDS ORDERED: methylPREDNISolone SOD SUCCI 125 MG/2 ML VIAL IV STA (15:28)
[2020-03-24] MEDS ORDERED: NALOXONE 0.4 MG/ML 1 ML VIAL IV PRN (15:55)
[2020-03-24 16:02] LABS: Appearance,Urine Clear (Clear); Bacteria,Urine Rare /hpf; Bilirubin,Urine Negative (Negative); Blood,Urine Negative (Negative); Color,Urine Yellow; Glucose,Urine (UA) Negative (Negative); Hyaline Casts,Urine 6 /lpf (0-2); Ketones,Urine Negative (Negative); Leukocyte Esterase,Urine Large (Negative); Mucus,Urine Occasional /hpf; Nitrite,Urine Negative (Negative); Protein,Urine Negative (Negative); RBC,Urine 2 /hpf (0-5); Specific Gravity,Urine 1.014 (1.001-1.035); Squamous Epithelial Cell,Urine <1 /hpf (0-4); Urobilinogen,Urine <2.0 mg/dL (<2.0); WBC,Urine 13 /hpf (0-5)
[2020-03-24] MEDS: IPRATROPIUM-ALBUTEROL 3 ML NEB INHALATION SCH ×2 (20:20→23:32)
[2020-03-24] MEDS: POTASSIUM CHLORIDE ER 20 MEQ TAB.ER PO SCH (20:59)
[2020-03-24] MEDS: ATENOLOL 50 MG TAB PO SCH (20:59)
--- NOTE | 2020-03-24 21:47 | P.HPIM ---
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 fib, chronic kidney disease, hypertension, hyperlipidemia and type 2 diabetes who has been doing well until the last few days when developed to have significant and worsening shortness of breath associated with lightheadedness and dizziness and fogginess along with mild altered mental st atus low-grade temperature no chills patient declined any chest pain angina type. Has been having mild cough with mild shortness of breath and wheezes also has been having vague symptom not a clear with slight worsening memory loss. He has been taking his medication regularly his and A. fib with RVR has been on warfarin his INR was subtherapeutic and patient admits sometimes he forgets taking his medication. Patient was evaluated at [facility]urs department found to have chest x-ray consistent with cardiomegaly and mild COPD. CAT scan of the brain showed multiple encephalomalacia of the) telemetry area along with multiple small area of small vessel disease with no major acute stroke found. White blood cell was mildly elevated at 13.3 with left shifted patient urine was very positive with multiple leukocyte and WBC with few RBC at the time. Patient was diagnosed with COPD exacerbation, slight bronchitis, urinary tract infection with possible sepsis along with mild altered mental status consistent with infection and hypoxia. Patient was started on O2 MDI inhaler started on IV Rocephin at the time will add Levaquin patient be admitted to the hospital will consult pulmonary and have slight more aggressive management for COPD including systemic steroid at 40 mg every 8 hours his Covid 19 was negative. Review of Systems CONSTITUTIONAL: Well-developed no acute respiratory distress. EYES: No icterus sclerae, no conjunctivitis. EARS, NOSE, MOUTH, THROAT, and FACE: No sore throat, lymphadenopathy, carotid bruits or deformity. RESPIRATORY: Significant dyspnea and shortness of breath cough wheezes. CARDIOVASCULAR: Positive PND orthopnea palpitation no angina. GASTROINTESTINAL: No Abd pain, Nausea or vomiting, no Diarrhea or constipation, No GI Bleed, no distention or masses. GENITOURINARY: Mild BPH symptoms and UTI with frequency and urgency. INTEGUMENT/BREAST: Negative for any muscular injury with mild osteoarthritis.. HEMATOLOGIC/LYMPHATIC: Negative for bleed or purpura. MUSCULOSKELTAL: Negative for Myalgia or arthralgia. NEURLOGICAL: Mild dizziness with worsening mental status. BEHAVIORAL/PSYCH: Negative. ENDOCRINE: Negative. 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, cataracts History of Any Multi-Drug Resistant Organisms: None Reported Past Surgical History: Unable to Obtain Additional Past Surgical History / Comment(s): heart surgery 10 years ago Past Anesthesia/Blood Transfusion Reactions: No Reported Reaction Past Psychological History: Unable to Obtain Smoking Status: Former smoker Past Alcohol Use History: None Reported Past Drug Use History: None Reported - Past Family History Mother Additional Family Medical History / Comment(s): of old age Brother(s) Family Medical History: Cancer, Coronary Artery Disease (CAD) Medications and Allergies Home Medications Medication Instructions Recorded Confirmed Type Allopurinol [Zyloprim] 100 mg PO DAILY 03/24/20 03/24/20 History Atenolol [Tenormin] 50 mg PO BID 03/24/20 03/24/20 History Atorvastatin [Lipitor] 40 mg PO DAILY 03/24/20 03/24/20 History Enalapril [Vasotec] 5 mg PO DAILY 03/24/20 03/24/20 History Furosemide [Lasix] 40 mg PO DAILY 03/24/20 03/24/20 History Levothyroxine Sodium [Synthroid] 112 mcg PO DAILY 03/24/20 03/24/20 History Potassium Chloride ER [K-Dur 20] 20 meq PO BID 03/24/20 03/24/20 History Tamsulosin HCl [Flomax] 0.4 mg PO DAILY 03/24/20 03/24/20 History Warfarin [Coumadin] 2.5 mg PO SUMOWEFR 03/24/20 03/24/20 History Warfarin [Coumadin] 5 mg PO TUTHSA 03/24/20 03/24/20 History Allergies Allergy/AdvReac Type Severity Reaction Status Date / Time No Known Allergies Allergy Verified 03/24/20 18:19 Physical Exam Vitals: Vital Signs Temp Pulse Pulse Resp BP BP Pulse Ox 03/24/20 20:58 92 L 03/24/20 20:55 112/70 03/24/20 20:31 78 03/24/20 20:24 94 L 03/24/20 20:23 76 03/24/20 20:13 98.2 F 93 18 104/63 92 L 03/24/20 17:54 98.0 F 92 20 122/86 95 03/24/20 17:28 86 16 118/79 99 03/24/20 16:04 62 03/24/20 15:55 80 03/24/20 14:56 81 16 120/80 99 03/24/20 12:15 97.6 F 80 18 119/83 96 Intake and Output 03/24/20 03/24/20 03/24/20 06:59 14:59 22:59 Other: Weight 90.718 kg 90.718 kg General Appearance: Alert, cooperative, no distress, appears stated age. Neck HEENT: Supple, no lymphadenopathy, no thyroid enlargement, no carotid bruits. Lungs: Decreased breath some bilaterally with fine rhonchi positive mild expiratory wheezes. Chest Wall: Decrease expansion with deep inspiration no tenderness and no deformity was found on exam, no costochondral pain or discomfort. Heart: Irrlar rate and rhythm, S1, S2 positive history positive 5 cm JVD. Back: Symmetric, no curvature, ROM normal, no CVA tenderness. Abdomen: Soft, non-tender, bowel sounds active all four quadrants, no masses, no organomegaly. Extremities: Extremities normal, atraumatic, no cyanosis trace edema. Pulses: 2+ and symmetric. Skin: Skin color, texture, tugor normal, no rashes or lesions. Neurologic: Alert slightly confused currently nerve II-12 intact positive generalized weakness positive normal balance and gait. Results CBC & Chem 7: 03/25/20 06:43 03/25/20 06:43 Labs: Abnormal Lab Results - Last 24 Hours (Table) 03/24/20 03/24/20 03/24/20 Range/Units 12:35 12:35 12:35 WBC 13.3 H (3.8-10.6) k/uL Neutrophils # 10.4 H (1.3-7.7) k/uL PT 13.2 H (9.0-12.0) sec INR 1.3 H (<1.2) BUN 33 H (9-20) mg/dL Creatinine 1.40 H (0.66-1.25) mg/dL Glucose 179 H (74-99) mg/dL Creatine Kinase 51 L (55-170) U/L Ur Leukocyte Esterase (Negative) Urine WBC (0-5) /hpf Urine Bacteria (None) /hpf Hyaline Casts (0-2) /lpf Urine Mucus (None) /hpf 05/24/20 Range/Units 15:45 WBC (3.8-10.6) k/uL Neutrophils # (1.3-7.7) k/uL PT (9.0-12.0) sec INR (<1.2) BUN (9-20) mg/dL Creatinine (0.66-1.25) mg/dL Glucose (74-99) mg/dL Creatine Kinase (55-170) U/L Ur Leukocyte Esterase Large H (Negative) Urine WBC 13 H (0-5) /hpf Urine Bacteria Rare H (None) /hpf Hyaline Casts 6 H (0-2) /lpf Urine Mucus Occasional H (None) /hpf Thrombosis Risk Factor Assmnt - DVT/VTE Prophylaxis DVT/VTE Prophylaxis: Pharmacologic Prophylaxis ordered, Mechanical Prophylaxis ordered - Choose All That Apply Any of the Below Risk Factors Present?: Yes Other Risk Factors: Yes Each Risk Factor Represents 3 Points: Age 75 years or older Thrombosis Risk Factor Assessment Total Risk Factor Score: 3 Thrombosis Risk Factor Assessment Level: Moderate Risk Assessment and Plan Assessment: 1 severe dyspnea and shortness of breath: Combination of COPD exacerbation along with bronchitis and A. fib with RVR, will continue to treat COPD at this point continue management for bronchitis with early pneumonitis as well. 2 urinary tract infection and possible sepsis UA was positive mild elevated white blood cell, lactic acid was negative. Patient was started on Rocephin urine culture was order Will add Levaquin at this point. 3 COPD exacerbation: Will add Solu-Medrol 40 mg every 8 hours along with MDI Ventolin and Pulmicort consult pulmonary. 4 severe bronchitis most likely early pneumonitis in the right base. Patient will be on Rocephin and Levaquin. 5 acute kidney injury: With stage III kidney disease and this point continue mild hydration repeat BUN/creatinine next 24 hours. 6 severe hyperglycemia and type 2 diabetes: Continue patient on Accu-Chek with sliding scales coverage for now. 7 CAD post CABG has been on secondary prevention doing well. 8 A. fib with RVR: Pulse rates under control on beta luisa patient remain on anticoagulation with warfarin his level is not that great with the finding and his CAT scan of the brain consistent with small vessel disease most likely worsening with the A. fib anticoagulation is not well-controlled probably beneficial to switch patient to one of the Novel agent. 9 BPH: Continue patient on Flomax 0.4 mg a day. 10 hypertension: Remain on enalapril and atenolol. 11 hypothyroidism: Continue on levothyroxine. 12 gout: Remain on Zyloprim 100 mg daily. 13 hyperlipidemia: On atorvastatin 40 mg a day. CODE STATUS: Full code. GI prophylaxis: Patient be on Pepcid 20 mg daily. DVT prophylaxis: Patient is on anticoagulation. Admit patient to inpatient status for more than 2 nights.
[2020-03-25] MEDS: methylPREDNISolone SOD SUCCI 40 MG/ML 1 ML VIAL IV SCH ×3 (01:09→16:28)
[2020-03-25] MEDS: IPRATROPIUM-ALBUTEROL 3 ML NEB INHALATION SCH ×5 (03:35→20:14)
[2020-03-25] MEDS: LEVOTHYROXINE 112 MCG TAB PO SCH (05:07)
[2020-03-25] MEDS: POTASSIUM CHLORIDE ER 20 MEQ TAB.ER PO SCH ×2 (07:07→21:35)
[2020-03-25] MEDS: LISINOPRIL 10 MG TAB PO SCH (07:08)
[2020-03-25] MEDS: ALLOPURINOL 100 MG TAB PO SCH (07:08)
[2020-03-25] MEDS: ATORVASTATIN 40 MG TAB PO SCH (07:08)
[2020-03-25] MEDS: TAMSULOSIN 0.4 MG CAP.ER.24H PO SCH (07:08)
[2020-03-25] MEDS: FAMOTIDINE 20 MG TAB PO SCH (07:08)
[2020-03-25] MEDS: ATENOLOL 50 MG TAB PO SCH ×2 (07:08→21:35)
[2020-03-25 07:38] LABS: INR 1.8 (<1.2); Prothrombin Time 17.6 sec (9.0-12.0)
[2020-03-25 07:40] LABS: Basophils % (A) 0 %; Eosinophils % (A) 0 %; HCT 47.2 % (39.0-53.0); HGB 14.5 gm/dL (13.0-17.5); Lymphocytes # (A) 0.9 k/uL (1.0-4.8); Lymphocytes % (A) 8 %; MCH 28.9 pg (25.0-35.0); MCHC 30.7 g/dL (31.0-37.0); MCV 94.1 fL (80.0-100.0); Mean Platelet Volume 8.9; Monocytes # (A) 0.4 k/uL (0-1.0); Monocytes % (A) 3 %; Neutrophils # (A) 10.4 k/uL (1.3-7.7); Neutrophils % (A) 88 %; Platelet Count 202 k/uL (150-450); RBC 5.02 m/uL (4.30-5.90); RDW 12.6 % (11.5-15.5); WBC 11.7 k/uL (3.8-10.6)
[2020-03-25 07:45] LABS: Albumin 3.6 g/dL (3.5-5.0); Potassium 4.8 mmol/L (3.5-5.1); Total Bilirubin 0.7 mg/dL (0.2-1.3); Total Protein 6.8 g/dL (6.3-8.2)
[2020-03-25] MEDS ORDERED: FUROSEMIDE 40 MG TAB PO SCH (09:00)
[2020-03-25] MEDS: FUROSEMIDE 10 MG/ML 4 ML VIAL IV SCH ×2 (10:55→21:36)
--- NOTE | 2020-03-25 11:14 | P.PN ---
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 fib, chronic kidney disease, hypertension, hyperlipidemia and type 2 diabetes who has been doing well until the last few days when developed to have significant and worsening shortness of breath associated with lightheadedness and dizziness and fogginess along with mild altered mental s tatus low-grade temperature no chills patient declined any chest pain angina type. Has been having mild cough with mild shortness of breath and wheezes also has been having vague symptom not a clear with slight worsening memory loss. He has been taking his medication regularly his and A. fib with RVR has been on warfarin his INR was subtherapeutic and patient admits sometimes he forgets taking his medication. Patient was evaluated at [facility] department found to have chest x-ray consistent with cardiomegaly and mild COPD. CAT scan of the brain showed multiple encephalomalacia of the) telemetry area along with multiple small area of small vessel disease with no major acute stroke found. White blood cell was mildly elevated at 13.3 with left shifted patient urine was very positive with multiple leukocyte and WBC with few RBC at the time. Patient was diagnosed with COPD exacerbation, slight bronchitis, urinary tract infection with possible sepsis along with mild altered mental status consistent with infection and hypoxia. Patient was started on O2 MDI inhaler started on IV Rocephin at the time will add Levaquin patient be admitted to the hospital will consult pulmonary and have slight more aggressive management for COPD including systemic steroid at 40 mg every 8 hours his Covid 19 was negative. 03/25: Patient is feeling slightly but better will be seen pulmonary continue Karolyn u-Medrol along with MDI bedtime agonist and Pulmicort continue to treat patient severe bronchitis and UTI Will add Levaquin to his medication regime at this point is feeling slightly but better compared to yesterday. Objective - Vital Signs Vital signs: Vital Signs Temp 97.7 F 03/25/20 02:11 Pulse 76 03/25/20 03:46 Resp 18 03/25/20 02:11 BP 108/66 03/25/20 02:11 Pulse Ox 95 03/25/20 02:11 Intake & Output 03/24/20 03/25/20 03/25/20 18:59 06:59 18:59 Intake Total 850 Balance 850 Weight 90.718 kg Intake: Oral 850 Other: # Voids 1 - Exam Review of Systems CONSTITUTIONAL: Well-developed no acute respiratory distress. EYES: No icterus sclerae, no conjunctivitis. EARS, NOSE, MOUTH, THROAT, and FACE: No sore throat, lymphadenopathy, carotid bruits or deformity. RESPIRATORY: Significant dyspnea and shortness of breath cough wheezes. CARDIOVASCULAR: Positive PND orthopnea palpitation no angina. GASTROINTESTINAL: No Abd pain, Nausea or vomiting, no Diarrhea or constipation, No GI Bleed, no distention or masses. GENITOURINARY: Mild BPH symptoms and UTI with frequency and urgency. INTEGUMENT/BREAST: Negative for any muscular injury with mild osteoarthritis.. HEMATOLOGIC/LYMPHATIC: Negative for bleed or purpura. MUSCULOSKELTAL: Negative for Myalgia or arthralgia. NEURLOGICAL: Mild dizziness with worsening mental status. BEHAVIORAL/PSYCH: Negative. ENDOCRINE: Negative. Physical Exam Vitals: General Appearance: Alert, cooperative, no distress, appears stated age. Neck HEENT: Supple, no lymphadenopathy, no thyroid enlargement, no carotid bruits. Lungs: Decreased breath some bilaterally with fine rhonchi positive mild expira tory wheezes. Chest Wall: Decrease expansion with deep inspiration no tenderness and no deformity was found on exam, no costochondral pain or discomfort. Heart: Irrlar rate and rhythm, S1, S2 positive history positive 5 cm JVD. Back: Symmetric, no curvature, ROM normal, no CVA tenderness. Abdomen: Soft, non-tender, bowel sounds active all four quadrants, no masses, no organomegaly. Extremities: Extremities normal, atraumatic, no cyanosis trace edema. Pulses: 2+ and symmetric. Skin: Skin color, texture, tugor normal, no rashes or lesions. Neurologic: Alert slightly confused currently nerve II-12 intact positive generalized weakness positive normal balance and gait. - Labs CBC & Chem 7: 03/25/20 18:01 03/25/20 06:43 Labs: Abnormal Lab Results - Last 24 Hours (Table) 03/24/20 03/24/20 03/24/20 Range/Units 12:35 12:35 12:35 WBC 13.3 H (3.8-10.6) k/uL MCHC (31.0-37.0) g/dL Neutrophils # 10.4 H (1.3-7.7) k/uL Lymphocytes # (1.0-4.8) k/uL PT 13.2 H (9.0-12.0) sec INR 1.3 H (<1.2) BUN 33 H (9-20) mg/dL Creatinine 1.40 H (0.66-1.25) mg/dL Glucose 179 H (74-99) mg/dL Creatine Kinase 51 L (55-170) U/L Ur Leukocyte Esterase (Negative) Urine WBC (0-5) /hpf Urine Bacteria (None) /hpf Hyaline Casts (0-2) /lpf Urine Mucus (None) /hpf 03/24/20 03/25/20 03/25/20 Range/Units 15:45 06:43 06:43 WBC 11.7 H (3.8-10.6) k/uL MCHC 30.7 L (31.0-37.0) g/dL Neutrophils # 10.4 H (1.3-7.7) k/uL Lymphocytes # 0.9 L (1.0-4.8) k/uL PT (9.0-12.0) sec INR (<1.2) BUN 33 H (9-20) mg/dL Creatinine 1.27 H (0.66-1.25) mg/dL Glucose 256 H (74-99) mg/dL Creatine Kinase (55-170) U/L Ur Leukocyte Esterase Large H (Negative) Urine WBC 13 H (0-5) /hpf Urine Bacteria Rare H (None) /hpf Hyaline Casts 6 H (0-2) /lpf Urine Mucus Occasional H (None) /hpf 03/25/20 Range/Units 06:43 WBC (3.8-10.6) k/uL MCHC (31.0-37.0) g/dL Neutrophils # (1.3-7.7) k/uL Lymphocytes # (1.0-4.8) k/uL PT 17.6 H (9.0-12.0) sec INR 1.8 H (<1.2) BUN (9-20) mg/dL Creatinine (0.66-1.25) mg/dL Glucose (74-99) mg/dL Creatine Kinase (55-170) U/L Ur Leukocyte Esterase (Negative) Urine WBC (0-5) /hpf Urine Bacteria (None) /hpf Hyaline Casts (0-2) /lpf Urine Mucus (None) /hpf Microbiology - Last 24 Hours (Table) 03/24/20 15:45 Urine Culture - Preliminary Urine,Voided Assessment and Plan Assessment: 1 severe dyspnea and shortness of breath: Combination of COPD exacerbation along with bronchitis and A. fib with RVR, will continue to treat COPD at this point continue management for bronchitis with early pneumonitis as well. Surprisingly patient found to have left-sided DVT and pulmonary embolism which found the VQ scan with high probability patient remain on anticoagulation currently may be the failure with his warfarin will be a good idea to switch him to one of the new agent at this point. 2 urinary tract infection and possible sepsis UA was positive mild elevated white blood cell, lactic acid was negative. Patient was started on Rocephin urine culture was order Will add Levaquin at this point. 3 COPD exacerbation: Will add Solu-Medrol 40 mg every 8 hours along with MDI Ventolin and Pulmicort consult pulmonary. 4 severe bronchitis most likely early pneumonitis in the right base. Patient will be on Rocephin and Levaquin. 5 DVT of the left leg and pulmonary embolism: Patient will continue on IV anticoagulation with try to switch him to one of the new agent in the next 24 hours. 6 severe hyperglycemia and type 2 diabetes: Continue patient on Accu-Chek with sliding scales coverage for now. We will add short-acting insulin with NovoLog along with Lantus at bedtime. 7 CAD post CABG has been on secondary prevention doing well. 8 A. fib with RVR: Pulse rates under control on beta luisa patient remain on anticoagulation with warfarin his level is not that great with the finding and his CAT scan of the brain consistent with small vessel disease most likely worsening with the A. fib anticoagulation is not well-controlled probably beneficial to switch patient to one of the Novel agent. 9 acute kidney injury: With stage III kidney disease and this point continue mild hydration repeat BUN/creatinine next 24 hours. 10 hypertension: Remain on enalapril and atenolol. 11 hypothyroidism: Continue on levothyroxine. 12 gout: Remain on Zyloprim 100 mg daily. 13 hyperlipidemia: On atorvastatin 40 mg a day. 14 BPH: Continue patient on Flomax 0.4 mg a day. Patient will continue on IV anticoagulation with try to switch him to one of the new agent while he is not hospital.
[2020-03-25 11:39] LABS: Glucose,Whole Blood 318 mg/dL (75-99)
[2020-03-25] MEDS ORDERED: INSULIN ASPART (NovoLOG) 100 UNIT/ML VIAL SQ ONE (11:52)
[2020-03-25] MEDS: INSULIN ASPART (NovoLOG) 100 UNIT/ML VIAL SQ SCH ×4 (11:54→21:36)
--- NOTE | 2020-03-25 12:00 | CONS ---
CONSULTATION This is a 79-year-old elderly gentleman came into the emergency room yesterday afternoon with complaints of shortness of breath, dizziness, lightheadedness on standing. He said his symptoms were going on for some time but they got progressively worse. He has a neighbor who was at the house who noted he was short of breath and was advised to come in. He is not a good historian. He has some amount of confusion. He does not seem to communicate very well. He does not seem to comprehend what is going on. He does take Coumadin on a regular basis and his rhythm is atrial fibrillation. On reviewing the old chart, atrial fibrillation appears to be chronic. Rate is controlled. He is resting comfortably without symptoms. I was asked to see him regarding heart failure, but patient appears to be reasonably stable at this time. He has no chest discomfort. His shortness of breath also is not evident and he does not complain of one, has no palpitations. PAST MEDICAL HISTORY: 1. Chronic atrial fibrillation. 2. Hypothyroidism, on replacement therapy. 3. Hyperlipidemia. 4. Hypertension. MEDICATIONS: Medications at home include Coumadin, potassium, Lasix 40 mg daily, Vasotec 5 mg daily, atenolol 50 mg b.i.d., Synthroid 112 mcg daily, Lipitor 40 mg daily, and allopurinol and Flomax. ALLERGIES: None. REVIEW OF SYSTEMS: Unremarkable other than above-mentioned facts. LABORATORY DATA: Suggests normal troponins, proBNP is modestly elevated at 4450. His creatinine is 1.27 today. No other significant abnormalities. He seems to have a UTI with high leukocyte esterase. PHYSICAL EXAMINATION: On examination, blood pressure is 128/70, pulse rate is 70 per minute. HEENT unremarkable. Fundus was not examined by me. NECK: Supple. There is JVD of 1 cm. No carotid bruit. HEART exam reveals S1, S2 with a regular rate and rhythm. Short systolic murmur. Second heart sound is well preserved. LUNGS: Lungs reveal fine rales over both bases. ABDOMEN is soft. LOWER EXTREMITIES reveal diminished pulses. CENTRAL NERVOUS SYSTEM: The patient is confused, but no focal deficits. EKG revealed atrial fib, controlled rate, nonspecific T-wave inversion seen in all the leads from V1 to V4. There is no old EKG available to compare with. Chest x-ray was unremarkable with some chronic changes. IMPRESSION: 1. Probable mild exacerbation of congestive heart failure probably systolic. The patient is not in overt heart failure. 2. Chronic atrial fibrillation. 3. Hypertension. 4. Hyperlipidemia. 5. History of hypothyroidism on replacement therapy. RECOMMENDATION: I am recommending that we give Lasix 40 mg q.12 hours for 3 doses and then switch him to oral Lasix. Check a CBC, BMP tomorrow. Obtain echocardiogram and based on clinical findings, will make further recommendations. Prognosis remains guarded. Thank you very much for the consult. MMODL / IJN: [id number] /
--- NOTE | 2020-03-25 13:37 | P.CNPUL ---
History of Present Illness Consult date: 03/25/20 Requesting physician: Eduardo Man Reason for consult: dyspnea Chief complaint: Shortness of breath, lightheadedness dizziness History of present illness: This is a very pleasant 79-year-old gentleman who follows with Dr. Roberts as his primary care provider with a history of urinary tract infections, CVA with memory loss, chronic atrial fibrillation, chronic kidney disease, hyperlipidemia, hypertension, type 2 diabetes mellitus. He does have a remote history of chronic tobacco dependence. He presented here to the emergency room yesterday with complaints of shortness of breath, dizziness and lightheadedness. Computed tomography scan of the brain revealed no acute intracranial process. There is evidence of encephalomalacia in the right parietal lobe, left frontal lobe and left occipital lobe from previous brain injury. Atherosclerosis of the intracranial vasculature. Chest x-ray revealed chronic changes but no acute cardiopulmonary process. He is seen today in consultation on the regular medical floor. He is currently sitting up in a chair at the bedside. Awake and alert in no acute distress. He is somewhat of a poor historian. He is maintaining O2 saturations in the 90s on 2 L/m per nasal cannula. Denies any chest pain or palpitations. White count 11.7. Hemoglobin 14.5. INR 1.8. D- dimer 27.12. Sodium 138. Potassium 4.8. Creatinine 1.27. Troponins negative 2. He's been initiated on DuoNeb inhalations, IV Solu-Medrol, IV diuretics. Review of Systems ROS unobtainable: due to mental status 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, cataracts History of Any Multi-Drug Resistant Organisms: None Reported Past Surgical History: Unable to Obtain Additional Past Surgical History / Comment(s): heart surgery 10 years ago Past Anesthesia/Blood Transfusion Reactions: No Reported Reaction Past Psychological History: Unable to Obtain Smoking Status: Former smoker Past Alcohol Use History: None Reported Past Drug Use History: None Reported - Past Family History Mother Additional Family Medical History / Comment(s): of old age Brother(s) Family Medical History: Cancer, Coronary Artery Disease (CAD) Medications and Allergies Home Medications Medication Instructions Recorded Confirmed Type Allopurinol [Zyloprim] 100 mg PO DAILY 03/24/20 03/24/20 History Atenolol [Tenormin] 50 mg PO BID 03/24/20 03/24/20 History Atorvastatin [Lipitor] 40 mg PO DAILY 03/24/20 03/24/20 History Enalapril [Vasotec] 5 mg PO DAILY 03/24/20 03/24/20 History Furosemide [Lasix] 40 mg PO DAILY 03/24/20 03/24/20 History Levothyroxine Sodium [Synthroid] 112 mcg PO DAILY 03/24/20 03/24/20 History Potassium Chloride ER [K-Dur 20] 20 meq PO BID 03/24/20 03/24/20 History Tamsulosin HCl [Flomax] 0.4 mg PO DAILY 03/24/20 03/24/20 History Warfarin [Coumadin] 2.5 mg PO SUMOWEFR 03/24/20 03/24/20 History Warfarin [Coumadin] 5 mg PO TUTHSA 03/24/20 03/24/20 History Allergies Allergy/AdvReac Type Severity Reaction Status Date / Time No Known Allergies Allergy Verified 03/24/20 18:19 Physical Exam Vitals: Vital Signs Temp Pulse Pulse Resp BP BP Pulse Ox 03/25/20 12:09 80 03/25/20 11:58 80 03/25/20 09:46 97.9 F 61 18 123/75 96 03/25/20 08:57 76 03/25/20 08:46 76 03/25/20 08:00 18 03/25/20 03:46 76 03/25/20 03:36 72 03/25/20 02:11 97.7 F 65 18 108/66 95 03/24/20 23:44 80 03/24/20 23:35 76 03/24/20 20:58 92 L 03/24/20 20:55 112/70 03/24/20 20:31 78 03/24/20 20:24 94 L 03/24/20 20:23 76 03/24/20 20:13 98.2 F 93 18 104/63 92 L 03/24/20 17:54 98.0 F 92 20 122/86 95 03/24/20 17:28 86 16 118/79 99 03/24/20 16:04 62 03/24/20 15:55 80 03/24/20 14:56 81 16 120/80 99 Intake and Output 03/24/20 03/25/20 03/25/20 22:59 06:59 14:59 Intake Total 550 300 480 Balance 550 300 480 Intake: Oral 550 300 480 Other: # Voids 1 1 Weight 90.718 kg GENERAL EXAM: Alert, pleasant 79-year-old gentleman, on 2 L nasal cannula, comfortable in no apparent distress. HEAD: Normocephalic. EYES: Normal reaction of pupils, equal size. NOSE: Clear with pink turbinates. THROAT: No erythema or exudates. NECK: No masses, no JVD. CHEST: No chest wall deformity. LUNGS: Equal air entry with no crackles, wheeze, rhonchi or dullness. CVS: S1 and S2 normal with no audible murmur, irregular rhythm. ABDOMEN: No hepatosplenomegaly, normal bowel sounds, no guarding or rigidity. SPINE: No scoliosis or deformity SKIN: No rashes CENTRAL NERVOUS SYSTEM: No focal deficits, tone is normal in all 4 extremities. EXTREMITIES: There is no peripheral edema. No clubbing, no cyanosis. Peripheral pulses are intact. Results - Laboratory Findings CBC and BMP: 03/25/20 06:43 03/25/20 06:43 PT/INR, D-dimer PT 17.6 sec (9.0-12.0) H 03/25/20 06:43 INR 1.8 (<1.2) H 03/25/20 06:43 D-Dimer 27.12 mg/L FEU (<0.60) H 03/25/20 12:44 Abnormal lab findings: Abnormal Labs 03/24/20 03/24/20 03/24/20 12:35 12:35 12:35 WBC 13.3 H MCHC Neutrophils # 10.4 H Lymphocytes # PT 13.2 H INR 1.3 H D-Dimer BUN 33 H Creatinine 1.40 H Glucose 179 H POC Glucose (mg/dL) Creatine Kinase 51 L Ur Leukocyte Esterase Urine WBC Urine Bacteria Hyaline Casts Urine Mucus 03/24/20 03/25/20 03/25/20 15:45 06:43 06:43 WBC 11.7 H MCHC 30.7 L Neutrophils # 10.4 H Lymphocytes # 0.9 L PT INR D-Dimer BUN 33 H Creatinine 1.27 H Glucose 256 H POC Glucose (mg/dL) Creatine Kinase Ur Leukocyte Esterase Large H Urine WBC 13 H Urine Bacteria Rare H Hyaline Casts 6 H Urine Mucus Occasional H 03/25/20 03/25/20 03/25/20 06:43 11:38 12:44 WBC MCHC Neutrophils # Lymphocytes # PT 17.6 H INR 1.8 H D-Dimer 27.12 H BUN Creatinine Glucose POC Glucose (mg/dL) 318 H Creatine Kinase Ur Leukocyte Esterase Urine WBC Urine Bacteria Hyaline Casts Urine Mucus - Diagnostic Findings Chest x-ray: image reviewed Assessment and Plan Assessment: 1 Dyspnea secondary to atrial fibrillation and possible exacerbation of COPD, probable exacerbation of congestive heart failure echocardiogram pending. 2 Pain in the left lower extremity 3 Coronary artery disease and previous bypass grafting 4 Atrial fibrillation, anticoagulated with warfarin 5 Hypertension 6 Diabetes mellitus 7 Chronic kidney disease 8 Remote history of chronic tobacco dependence 9 Poor historian with history of previous brain injury with encephalomalacia Plan: The patient was seen and evaluated by Dr. Mckee Chest x-ray and labs reviewed Continue bronchodilators and IV Solu-Medrol Continue diuretics Obtain Doppler of the left lower extremity Echocardiogram pending We will continue to follow and make further recommendations based on his clinical status I, the cosigning physician, performed a history & physical examination of the patient. Lungs sounds are clear. Maintaining good O2 saturations in the 90s on 2 L/m per nasal cannula. I discussed the assessment and plan of care with my nurse practitioner, Ysabel Swann. I attest to the above consultation as dictated by her. Time with Patient: Greater than 30
[2020-03-25 14:43] LABS: Glucose,Whole Blood 298 mg/dL (75-99)
--- NOTE | 2020-03-25 15:13 | US ---
EXAMINATION TYPE: US venous doppler duplex LE LT DATE OF EXAM: 03/25/2020 2:56 PM COMPARISON: NONE CLINICAL HISTORY: left calf pain. SIDE PERFORMED: Left TECHNIQUE: The lower extremity deep venous system is examined utilizing real time linear array sonog mikie with graded compression, doppler sonography and color-flow sonography. VESSELS IMAGED: External Iliac Vein (EIV) Common Femoral Vein Deep Femoral Vein Greater Saphenous Vein * Femoral Vein Popliteal Vein Small Saphenous Vein * Proximal Calf Veins (* superficial vessels) Left Leg: Positive for DVT left proximal calf veins to proximal femoral vein . Incomplete compressib ility and echogenic thrombus seen. IMPRESSION: Exam is positive for deep venous thrombosis from the left proximal femoral vein into the calf veins. A Yellow level critical message alert has been initiated for Phillip Mckee MD~[id number] via the [employer] Critical Results System on 03/25/2020 3:10 PM. This message alert has been sent to Phillip Mckee MD~[id number] via the preferences provided by the clinician for the receipt of Radiology Critical Finding s. Message ID [id number].
--- NOTE | 2020-03-25 16:37 | NM ---
"EXAMINATION TYPE: NM pul vent and perfuse DATE OF EXAM: 03/25/2020 COMPARISON: Chest x-ray dated 03/24/2020 and ultrasound of the left lower extremity demonstrating deep venous arthrosis dated 03/25/2020. HISTORY: Elevated d-dimer TECHNIQUE: Utilizing inhalation of 34 mCi Tc 99m DTPA aerosol and intravenous injection of 4.8 mCi o f Tc 99m MAA, ventilation and perfusion images are acquired post injection in multiple projections. FINDINGS: Mismatched defects are seen in the right upper lobe, large, as well as large within the left lower lo be. Segmental moderate defects are also seen within the right lower lobe and right upper lobe as well as the right middle lobe. Radiotracer clumping of the ventilation portion the examination slightly l imits evaluation. IMPRESSION: High probability for pulmonary embolus. A Red level critical message alert has been initiated for Phillip Mckee MD~[id number] via the [employer] 36 0 | Critical Results System on 03/25/2020 4:35 PM. This message alert has been sent to Phillip Mckee MD ~[id number] via the preferences provided by the clinician for the receipt of Radiology Critical Findings. Message ID [id number]."
[2020-03-25] MEDS ORDERED: SALINE 1 500ML.BAG with HEPARIN SODIUM,PORCINE/NS/PF 1,000 UNIT IV ONE (16:54)
[2020-03-25 16:56] LABS: Glucose,Whole Blood 333 mg/dL (75-99)
[2020-03-25] MEDS ORDERED: HEPARIN SODIUM,PORCINE 10,000 UNIT/ML 1 ML VIAL IV ONE (17:01)
[2020-03-25] MEDS ORDERED: HEPARIN SODIUM,PORCINE 5,000 UNIT/ML 1 ML VIAL IV PRN (17:01)
[2020-03-25] MEDS: HEPARIN SOD,PORK IN 0.45% NACL 25,000 UNIT in 0.45% NACL 1 250ML.BAG IV SCH ×2 (17:36→21:23)
[2020-03-25] MEDS ORDERED: WARFARIN 5 MG TAB PO SCH (18:00)
[2020-03-25 18:54] LABS: Basophils # (A) 0.1 k/uL (0-0.2); Basophils % (A) 0 %; Eosinophils % (A) 0 %; HCT 48.3 % (39.0-53.0); HGB 15.9 gm/dL (13.0-17.5); Hypochromasia Slight; Lymphocytes # (A) 0.9 k/uL (1.0-4.8); Lymphocytes % (A) 5 %; MCH 31.3 pg (25.0-35.0); MCHC 32.9 g/dL (31.0-37.0); MCV 95.3 fL (80.0-100.0); Mean Platelet Volume 9.5; Monocytes # (A) 0.8 k/uL (0-1.0); Monocytes % (A) 4 %; Neutrophils # (A) 17.2 k/uL (1.3-7.7); Neutrophils % (A) 90 %; Platelet Count 213 k/uL (150-450); RBC 5.07 m/uL (4.30-5.90); RDW 12.6 % (11.5-15.5); WBC 19.1 k/uL (3.8-10.6)
[2020-03-25 19:28] LABS: INR 3.2 (<1.2); Prothrombin Time 31.1 sec (9.0-12.0)
[2020-03-25 19:32] LABS: Partial Thromboplastin Time 124.1 sec (22.0-30.0)
[2020-03-25 21:30] LABS: Glucose,Whole Blood 233 mg/dL (75-99)
[2020-03-26] MEDS ORDERED: INSULIN DETEMIR (LEVEMIR) 100 UNIT/ML SYR SQ SCH
[2020-03-26] MEDS: methylPREDNISolone SOD SUCCI 40 MG/ML 1 ML VIAL IV SCH ×2 (00:27→07:21)
[2020-03-26 01:15] LABS: INR 2.9 (<1.2); Prothrombin Time 28.8 sec (9.0-12.0)
[2020-03-26] MEDS: IPRATROPIUM-ALBUTEROL 3 ML NEB INHALATION SCH ×4 (02:06→11:06)
[2020-03-26] MEDS: LEVOTHYROXINE 112 MCG TAB PO SCH (05:32)
[2020-03-26 07:06] LABS: Glucose,Whole Blood 132 mg/dL (75-99)
[2020-03-26] MEDS: INSULIN ASPART (NovoLOG) 100 UNIT/ML VIAL SQ SCH ×4 (07:10→12:40)
[2020-03-26] MEDS: POTASSIUM CHLORIDE ER 20 MEQ TAB.ER PO SCH (07:20)
[2020-03-26] MEDS: LISINOPRIL 10 MG TAB PO SCH (07:20)
[2020-03-26] MEDS: ATENOLOL 50 MG TAB PO SCH (07:20)
[2020-03-26] MEDS: ALLOPURINOL 100 MG TAB PO SCH (07:20)
[2020-03-26] MEDS: FAMOTIDINE 20 MG TAB PO SCH ×2 (07:20→07:21)
[2020-03-26] MEDS: FUROSEMIDE 10 MG/ML 4 ML VIAL IV SCH (07:21)
[2020-03-26] MEDS: TAMSULOSIN 0.4 MG CAP.ER.24H PO SCH (07:21)
[2020-03-26] MEDS: ATORVASTATIN 40 MG TAB PO SCH (07:26)
[2020-03-26 07:36] VITALS: TEMP 97.5
[2020-03-26 07:58] LABS: Basophils % (A) 0 %; Eosinophils % (A) 0 %; HCT 46.5 % (39.0-53.0); HGB 15.5 gm/dL (13.0-17.5); Lymphocytes # (A) 1.1 k/uL (1.0-4.8); Lymphocytes % (A) 5 %; MCHC 33.4 g/dL (31.0-37.0); MCV 92.9 fL (80.0-100.0); Mean Platelet Volume 9.2; Monocytes # (A) 0.7 k/uL (0-1.0); Monocytes % (A) 3 %; Neutrophils # (A) 18.9 k/uL (1.3-7.7); Neutrophils % (A) 90 %; Platelet Count 217 k/uL (150-450); RDW 12.6 % (11.5-15.5); WBC 20.9 k/uL (3.8-10.6)
[2020-03-26 08:14] LABS: Albumin 3.8 g/dL (3.5-5.0); Calcium 9.3 mg/dL (8.4-10.2); Potassium 4.3 mmol/L (3.5-5.1); Total Bilirubin 0.6 mg/dL (0.2-1.3); Total Protein 7.1 g/dL (6.3-8.2)
[2020-03-26 08:20] LABS: INR 1.7 (<1.2); Prothrombin Time 16.8 sec (9.0-12.0)
--- NOTE | 2020-03-26 09:30 | P.PN ---
Subjective Progress Note Date: 03/26/20 Principal diagnosis: Dyspnea and shortness of breath, COPD exacerbation, severe bronchitis, left leg DVT and pulmonary embolism. 79-year-old male one of Dr. Ruiz patient with past medical history of CAD, A. fib, chronic kidney disease, hypertension, hyperlipidemia and type 2 diabetes who has been doing well until the last few days when developed to have significant and worsening shortness of breath associated with lightheadedness and dizziness and fogginess along with mild altered mental status low-grade temperature no chills patient declined any chest pain angina type. Has been having mild cough with mild shortness of breath and wheezes also has been having vague symptom not a clear with slight worsening memory loss. He has been taking his medication regularly his and A. fib with RVR has been on warfarin his INR was subtherapeutic and patient admits sometimes he forgets taking his medication. Patient was evaluated at [facility] department found to have chest x-ray consistent with cardiomegaly and mild COPD. CAT scan of the brain showed multiple encephalomalacia of the) telemetry area along with multiple small area of small vessel disease with no major acute stroke found. White blood cell was mildly elevated at 13.3 with left shifted patient urine was very positive with multiple leukocyte and WBC with few RBC at the time. Patient was diagnosed with COPD exacerbation, slight bronchitis, urinary tract infection with possible sepsis along with mild altered mental status consistent with infection and hypoxia. Patient was started on O2 MDI inhaler started on IV Rocephin at the time will add Levaquin patient be admitted to the hospital will consult pulmonary and have slight more aggressive management for COPD including systemic steroid at 40 mg every 8 hours his Covid 19 was negative. 03/25: Patient is feeling slightly but better will be seen pulmonary continue Solu-Medrol along with MDI bedtime agonist and Pulmicort continue to treat patient severe bronchitis and UTI Will add Levaquin to his medication regime at this point is feeling slightly but better compared to yesterday. 03/26: Patient ended up going for Doppler of the left leg yesterday came back positive for DVT also had VQ scan was positive for pulmonary embolism, patient was started on heparin drip and long talk with patient and pulmonary about the possibility of changing him from warfarin to one of the new agent for more stability on the long run. Objective - Vital Signs Vital signs: Vital Signs Temp 97.5 F L 03/26/20 07:00 Pulse 72 03/26/20 08:21 Resp 16 03/26/20 01:40 BP 126/72 03/26/20 07:00 Pulse Ox 97 03/26/20 07:00 Intake & Output 03/25/20 03/26/20 03/26/20 18:59 06:59 18:59 Intake Total 480 61.778 Balance 480 61.778 Intake: Intake, IV Titration 61.778 Amount Heparin Sod,Pork in 0.45% 61.778 NaCl 25,000 unit In 0.45 % NaCl 1 250ml.bag @ 18 UNITS/KG/HR 16.329 mls/hr IV .[id number] MONO Rx#: [id number] Oral 480 Other: Voiding Method Toilet # Voids 3 1 - Exam Review of Systems CONSTITUTIONAL: Well-developed no acute respiratory distress. EYES: No icterus sclerae, no conjunctivitis. EARS, NOSE, MOUTH, THROAT, and FACE: No sore throat, lymphadenopathy, carotid bruits or deformity. RESPIRATORY: Significant dyspnea and shortness of breath cough wheezes. CARDIOVASCULAR: Positive PND orthopnea palpitation no angina. GASTROINTESTINAL: No Abd pain, Nausea or vomiting, no Diarrhea or constipation, No GI Bleed, no distention or masses. GENITOURINARY: Mild BPH symptoms and UTI with frequency and urgency. INTEGUMENT/BREAST: Negative for any muscular injury with mild osteoarthritis.. HEMATOLOGIC/LYMPHATIC: Negative for bleed or purpura. MUSCULOSKELTAL: Negative for Myalgia or arthralgia. NEURLOGICAL: Mild dizziness with worsening mental status. BEHAVIORAL/PSYCH: Negative. ENDOCRINE: Negative. Physical Exam Vitals: General Appearance: Alert, cooperative, no distress, appears stated age. Neck HEENT: Supple, no lymphadenopathy, no thyroid enlargement, no carotid bruits. Lungs: Decreased breath some bilaterally with fine rhonchi positive mild expiratory wheezes. Chest Wall: Decrease expansion with deep inspiration no tenderness and no deformity was found on exam, no costochondral pain or discomfort. Heart: Irrlar rate and rhythm, S1, S2 positive history positive 5 cm JVD. Back: Symmetric, no curvature, ROM normal, no CVA tenderness. Abdomen: Soft, non-tender, bowel sounds active all four quadrants, no masses, no organomegaly. Extremities: Extremities normal, atraumatic, no cyanosis trace edema. Pulses: 2+ and symmetric. Skin: Skin color, texture, tugor normal, no rashes or lesions. Neurologic: Alert slightly confused currently nerve II-12 intact positive generalized weakness positive normal balance and gait. - Labs CBC & Chem 7: 03/26/20 07:05 03/26/20 07:05 Labs: Abnormal Lab Results - Last 24 Hours (Table) 03/25/20 03/25/20 03/25/20 Range/Units 11:38 12:44 14:42 WBC (3.8-10.6) k/uL Neutrophils # (1.3-7.7) k/uL Lymphocytes # (1.0-4.8) k/uL PT (9.0-12.0) sec INR (<1.2) APTT (22.0-30.0) sec D-Dimer 27.12 H (<0.60) mg/L FEU BUN (9-20) mg/dL Creatinine (0.66-1.25) mg/dL Glucose (74-99) mg/dL POC Glucose (mg/dL) 318 H 298 H (75-99) mg/dL AST (17-59) U/L ALT (4-49) U/L 03/25/20 03/25/20 03/25/20 Range/Units 16:54 18:01 18:01 WBC 19.1 H (3.8-10.6) k/uL Neutrophils # 17.2 H (1.3-7.7) k/uL Lymphocytes # 0.9 L (1.0-4.8) k/uL PT 31.1 H (9.0-12.0) sec INR 3.2 H (<1.2) APTT 124.1 H* (22.0-30.0) sec D-Dimer (<0.60) mg/L FEU BUN (9-20) mg/dL Creatinine (0.66-1.25) mg/dL Glucose (74-99) mg/dL POC Glucose (mg/dL) 333 H (75-99) mg/dL AST (17-59) U/L ALT (4-49) U/L 03/25/20 03/25/20 03/25/20 Range/Units 21:29 23:26 23:26 WBC (3.8-10.6) k/uL Neutrophils # (1.3-7.7) k/uL Lymphocytes # (1.0-4.8) k/uL PT 28.8 H (9.0-12.0) sec INR 2.9 H (<1.2) APTT 47.9 H (22.0-30.0) sec D-Dimer (<0.60) mg/L FEU BUN (9-20) mg/dL Creatinine (0.66-1.25) mg/dL Glucose (74-99) mg/dL POC Glucose (mg/dL) 233 H (75-99) mg/dL AST (17-59) U/L ALT (4-49) U/L 03/26/20 03/26/20 03/26/20 Range/Units 07:04 07:05 07:05 WBC 20.9 H (3.8-10.6) k/uL Neutrophils # 18.9 H (1.3-7.7) k/uL Lymphocytes # (1.0-4.8) k/uL PT 16.8 H (9.0-12.0) sec INR 1.7 H (<1.2) APTT (22.0-30.0) sec D-Dimer (<0.60) mg/L FEU BUN (9-20) mg/dL Creatinine (0.66-1.25) mg/dL Glucose (74-99) mg/dL POC Glucose (mg/dL) 132 H (75-99) mg/dL AST (17-59) U/L ALT (4-49) U/L 03/26/20 Range/Units 07:05 WBC (3.8-10.6) k/uL Neutrophils # (1.3-7.7) k/uL Lymphocytes # (1.0-4.8) k/uL PT (9.0-12.0) sec INR (<1.2) APTT (22.0-30.0) sec D-Dimer (<0.60) mg/L FEU BUN 41 H (9-20) mg/dL Creatinine 1.37 H (0.66-1.25) mg/dL Glucose 137 H (74-99) mg/dL POC Glucose (mg/dL) (75-99) mg/dL AST 64 H (17-59) U/L ALT 69 H (4-49) U/L Microbiology - Last 24 Hours (Table) 03/24/20 15:45 Urine Culture - Final Urine,Voided 03/24/20 17:00 Blood Culture - Preliminary Blood No Growth after 24 hours Assessment and Plan Assessment: 1 severe dyspnea and shortness of breath: Combination of COPD exacerbation along with bronchitis and A. fib with RVR, will continue to treat COPD at this point continue management for bronchitis with early pneumonitis as well. Surprisingly patient found to have left-sided DVT and pulmonary embolism which found the VQ scan with high probability patient remain on anticoagulation currently may be the failure with his warfarin will be a good idea to switch him to one of the new agent at this point. 2 urinary tract infection and possible sepsis UA was positive mild elevated white blood cell, lactic acid was negative. Patient was started on Rocephin urine culture was order Will add Levaquin at this point. 3 COPD exacerbation: Will add Solu-Medrol 40 mg every 8 hours along with MDI Ventolin and Pulmicort consult pulmonary. 4 severe bronchitis most likely early pneumonitis in the right base. Patient w ill be on Rocephin and Levaquin. 5 DVT of the left leg and pulmonary embolism: Patient will continue on IV anticoagulation with try to switch him to one of the new agent in the next 24 hours. Patient be started on Eliquis by tomorrow morning. 6 severe hyperglycemia and type 2 diabetes: Continue patient on Accu-Chek with sliding scales coverage for now. We will add short-acting insulin with NovoLog along with Lantus at bedtime. 7 CAD post CABG has been on secondary prevention doing well. 8 A. fib with RVR: Pulse rates under control on beta luisa patient remain on anticoagulation with warfarin his level is not that great with the finding and his CAT scan of the brain consistent with small vessel disease most likely worsening with the A. fib anticoagulation is not well-controlled probably beneficial to switch patient to one of the Novel agent. 9 acute kidney injury: With stage III kidney disease and this point continue mild hydration repeat BUN/creatinine next 24 hours. 10 hypertension: Remain on enalapril and atenolol. 11 hypothyroidism: Continue on levothyroxine. 12 gout: Remain on Zyloprim 100 mg daily. 13 hyperlipidemia: On atorvastatin 40 mg a day. 14 BPH: Continue patient on Flomax 0.4 mg a day. Patient will continue on IV anticoagulation with try to switch him to one of the new agent while he is not hospital.
--- NOTE | 2020-03-26 09:38 | P.PN ---
Subjective Progress Note Date: 03/26/20 Principal diagnosis: Pulmonary emboli, left lower extremity DVT This is a very pleasant 79-year-old gentleman who follows with Dr. Ruiz as his primary care provider with a history of urinary tract infections, CVA with memory loss, chronic atrial fibrillation, chronic kidney disease, hyperlipidemia, hypertension, type 2 diabetes mellitus. He does have a remote history of chronic tobacco dependence. He presented here to the emergency room yesterday with complaints of shortness of breath, dizziness and lightheadedness. Computed tomography scan of the brain revealed no acute intracranial process. There is evidence of encephalomalacia in the right parietal lobe, left frontal lobe and left occipital lobe from previous brain injury. Atherosclerosis of the intracranial vasculature. Chest x-ray revealed chronic changes but no acute cardiopulmonary process. He is seen today in consultation on the regular medical floor. He is currently sitting up in a chair at the bedside. Awake and alert in no acute distress. He is somewhat of a poor historian. He is maint aining O2 saturations in the 90s on 2 L/m per nasal cannula. Denies any chest pain or palpitations. White count 11.7. Hemoglobin 14.5. INR 1.8. D-dimer 27.12. Sodium 138. Potassium 4.8. Creatinine 1.27. Troponins negative 2. He's been initiated on DuoNeb inhalations, IV Solu-Medrol, IV diuretics. The patient is seen today 03/26/2020 in follow-up on the regular medical floor. He is currently sitting up at the bedside. Awake and alert in no acute distress. Continues to maintain good O2 saturations in the 90s on 2 L/m per nasal cannula. He's been afebrile. Hemodynamically stable. Still dyspneic with minimal exertion. Doppler of the left lower extremity was positive for DVT. VQ scan was positive for a large pulmonary embolism in the right upper lobe as well as a large left lower lobe pulmonary emboli. He was subtherapeutic on his INR on presentation at 1.3. Currently 1.7. He was initiated on a heparin drip last evening. Objective - Vital Signs Vital signs: Vital Signs Temp 97.5 F L 03/26/20 07:00 Pulse 72 03/26/20 08:21 Resp 16 03/26/20 01:40 BP 126/72 03/26/20 07:00 Pulse Ox 97 03/26/20 07:00 Intake & Output 03/25/20 03/26/20 03/26/20 18:59 06:59 18:59 Intake Total 480 61.778 Balance 480 61.778 Intake: Intake, IV Titration 61.778 Amount Heparin Sod,Pork in 0.45% 61.778 NaCl 25,000 unit In 0.45 % NaCl 1 250ml.bag @ 18 UNITS/KG/HR 16.329 mls/hr IV .[id number] [facility] Rx#: [id number] Oral 480 Other: Voiding Method Toilet # Voids 3 1 - Exam GENERAL EXAM: Alert, pleasant 79-year-old gentleman, on 2 L nasal cannula, comfortable in no apparent distress. HEAD: Normocephalic. EYES: Normal reaction of pupils, equal size. NOSE: Clear with pink turbinates. THROAT: No erythema or exudates. NECK: No masses, no JVD. CHEST: No chest wall deformity. LUNGS: Equal air entry with no crackles, wheeze, rhonchi or dullness. CVS: S1 and S2 normal with no audible murmur, irregular rhythm. ABDOMEN: No hepatosplenomegaly, normal bowel sounds, no guarding or rigidity. SPINE: No scoliosis or deformity SKIN: No rashes CENTRAL NERVOUS SYSTEM: No focal deficits, tone is normal in all 4 extremities. EXTREMITIES: There is no peripheral edema. No clubbing, no cyanosis. Peripheral pulses are intact. - Labs CBC & Chem 7: 03/26/20 07:05 03/26/20 07:05 Labs: Abnormal Lab Results - Last 24 Hours (Table) 03/25/20 03/25/20 03/25/20 Range/Units 11:38 12:44 14:42 WBC (3.8-10.6) k/uL Neutrophils # (1.3-7.7) k/uL Lymphocytes # (1.0-4.8) k/uL PT (9.0-12.0) sec INR (<1.2) APTT (22.0-30.0) sec D-Dimer 27.12 H (<0.60) mg/L FEU BUN (9-20) mg/dL Creatinine (0.66-1.25) mg/dL Glucose (74-99) mg/dL POC Glucose (mg/dL) 318 H 298 H (75-99) mg/dL AST (17-59) U/L ALT (4-49) U/L 03/25/20 03/25/20 03/25/20 Range/Units 16:54 18:01 18:01 WBC 19.1 H (3.8-10.6) k/uL Neutrophils # 17.2 H (1.3-7.7) k/uL Lymphocytes # 0.9 L (1.0-4.8) k/uL PT 31.1 H (9.0-12.0) sec INR 3.2 H (<1.2) APTT 124.1 H* (22.0-30.0) sec D-Dimer (<0.60) mg/L FEU BUN (9-20) mg/dL Creatinine (0.66-1.25) mg/dL Glucose (74-99) mg/dL POC Glucose (mg/dL) 333 H (75-99) mg/dL AST (17-59) U/L ALT (4-49) U/L 03/25/20 03/25/20 03/25/20 Range/Units 21:29 23:26 23:26 WBC (3.8-10.6) k/uL Neutrophils # (1.3-7.7) k/uL Lymphocytes # (1.0-4.8) k/uL PT 28.8 H (9.0-12.0) sec INR 2.9 H (<1.2) APTT 47.9 H (22.0-30.0) sec D-Dimer (<0.60) mg/L FEU BUN (9-20) mg/dL Creatinine (0.66-1.25) mg/dL Glucose (74-99) mg/dL POC Glucose (mg/dL) 233 H (75-99) mg/dL AST (17-59) U/L ALT (4-49) U/L 03/26/20 03/26/20 03/26/20 Range/Units 07:04 07:05 07:05 WBC 20.9 H (3.8-10.6) k/uL Neutrophils # 18.9 H (1.3-7.7) k/uL Lymphocytes # (1.0-4.8) k/uL PT 16.8 H (9.0-12.0) sec INR 1.7 H (<1.2) APTT (22.0-30.0) sec D-Dimer (<0.60) mg/L FEU BUN (9-20) mg/dL Creatinine (0.66-1.25) mg/dL Glucose (74-99) mg/dL POC Glucose (mg/dL) 132 H (75-99) mg/dL AST (17-59) U/L ALT (4-49) U/L 03/26/20 Range/Units 07:05 WBC (3.8-10.6) k/uL Neutrophils # (1.3-7.7) k/uL Lymphocytes # (1.0-4.8) k/uL PT (9.0-12.0) sec INR (<1.2) APTT (22.0-30.0) sec D-Dimer (<0.60) mg/L FEU BUN 41 H (9-20) mg/dL Creatinine 1.37 H (0.66-1.25) mg/dL Glucose 137 H (74-99) mg/dL POC Glucose (mg/dL) (75-99) mg/dL AST 64 H (17-59) U/L ALT 69 H (4-49) U/L Microbiology - Last 24 Hours (Table) 03/24/20 15:45 Urine Culture - Final Urine,Voided 03/24/20 17:00 Blood Culture - Preliminary Blood No Growth after 24 hours Assessment and Plan Assessment: 1 Dyspnea secondary to bilateral pulmonary emboli, atrial fibrillation and possible exacerbation of COPD, probable exacerbation of congestive heart failure echocardiogram pending. 2 Pain in the left lower extremity 3 Coronary artery disease and previous bypass grafting 4 Atrial fibrillation, anticoagulated with warfarin, subtherapeutic on presentation 5 Hypertension 6 Diabetes mellitus 7 Chronic kidney disease 8 Remote history of chronic tobacco dependence 9 Poor historian with history of previous brain injury with encephalomalacia Plan: The patient was seen and evaluated by Dr. Fried Doppler positive for DVT of the left lower extremity VQ scan positive for bilateral PE Question of medication compliance with warfarin based on presenting INR 1.3 Currently on a heparin drip Consider Xarelto or Eliquis Echocardiogram pending We will continue to follow and make further recommendations based on his clinical status I, the cosigning physician, performed a history & physical examination of the patient. Lungs sounds are clear. Maintaining good O2 saturations in the 90s on 2 L/m per nasal cannula. I discussed the assessment and plan of care with my nurse practitioner, Ysabel Swann. I attest to the above consultation as dictated by her.
[2020-03-26 11:21] LABS: Glucose,Whole Blood 195 mg/dL (75-99)
[2020-03-26 14:51] LABS: Glucose,Whole Blood 260 mg/dL (75-99)
[2020-03-26] MEDS ORDERED: DIAZEPAM 5 MG/ML 2 ML INJ IVP STA (14:57)
[2020-03-26] MEDS ORDERED: PROPOFOL 100 ML IV ONE (14:58)
[2020-03-26] MEDS ORDERED: SODIUM BICARB 8.4% 50 ML SYR (1 MEQ/ML) ONE ×4 (15:24→15:58)
[2020-03-26] MEDS ORDERED: DEXTROSE 5% IN WATER 1,000 ML with SODIUM BICARB (1 MEQ/ML) 150 ML IV SCH (16:00)
[2020-03-26 16:04] LABS: Albumin 3.7 g/dL (3.5-5.0); Calcium 8.8 mg/dL (8.4-10.2); Magnesium 2.3 mg/dL (1.6-2.3); Phosphorus 5.4 mg/dL (2.5-4.5); Potassium 3.7 mmol/L (3.5-5.1); Total Bilirubin 1.1 mg/dL (0.2-1.3); Total Protein 6.8 g/dL (6.3-8.2)
[2020-03-26] MEDS ORDERED: CHLORHEXIDINE GLUCONATE 15 ML CUP MUCOUS MEM ONE (16:26)
[2020-03-26 17:10] VITALS: BP 76/23; PULSE 0; RESP 0
--- NOTE | 2020-03-26 17:31 | P.EN ---
CODE BLUE note: Arrived to room to find CPR in progress Initial rhythm: Bradycardia noted by telemetry, nursing entered room and patient was noted to have absent pulse. CPR started. Patient hooked up to monitor. Blood sugar 260. He received multiple doses of epi and bicarb. He achieved ROSC. Patient intubated by anesthesia. He was noted to be fighting and pulling at the ET tube. His initial BP was 80/50. He was given 5 mg of IV valium for sedation. He was started on Levophed for hypotension and 1L NS IV bolus was started. His heparin gtt was held during the code as he had 1 IV. He was still pulling at the ET and tube but not following commands. He was started on propofol and had adequate response. 12 lead EKG reviewed and patient noted to be in A. fib with RVR without significant ST segment elevation. Labs were drawn. Patient then became bradycardiac and was given 1 dose of atropine and 1 additional unit of bicarb with adequate response. His levophed was up titrated. His propofol was stopped. He was transferred to the ICU. He was placed on the vent, He again became bradycardiac and lost pulses. He received multiple doses of epi and bicarb and had ROSC. His levophed was increased as BP was 66/38 and he was on a total of 67 mcg of Levophed. He quickly lost pusles again and CPR was resumed. He underwent 2 minutes of additional CPR and on recheck was still in PEA. Pat ient was pronounced at 1604. Total down time was approx 35 minutes. Stat labs had not resulted at the time of . Please see both code blue forms for further details such as exact times and doses of medications given. A total of 80 minutes of critical care times was spent with this complex patient. DX: cardiac arrest, acute respiratory failure, bilateral pulmonary embolism Dr. Man notified of by myself. Nursing notified family.
--- NOTE | 2020-03-26 22:36 | CONS ---
DATE OF CONSULTATION: 03/26/2020 Mr. Garcia is a 79-year-old gentleman who came with multiple medical problems. Patient has a history of DVT of left lower extremity. Patient is on heparin. The patient also was found to have a clot in the right lung with high probability for pulmonary embolism. The patient has a medical history of COPD with exacerbation of bronchitis, history of atrial fibrillation, history of COPD, history of diabetes. The patient was seen in his room. Patient is position. Patient is very short of breath, has nasal oxygen. Neck is supple. Chest has crackles bilaterally. Abdomen is soft, nontender. Femorals are 1+. The patient has no evidence of varicose vein. The patient has a history of DVT by ultrasound. PLAN: Patient on heparin. Will have oral anticoagulation. After his discharge he will follow in the office for one month. At this point, there is no vascular compromise noted. Recommendation is anticoagulation. MMODL / IJN: [id number] / MTDD
--- NOTE | 2020-03-27 21:29 | P.PN ---
Subjective 79-year-old male patient presented with shortness with lightheadedness upon standing. History of persistent atrial fibrillation rate controlled Coronary was called for heart failure management. He has a history of hypertension and dyslipidemia He was seen by Dr. Grayson in initial consultation and was treated with IV Lasix and an echocardiogram was recommended I saw him in follow-up in the morning of March 26, around 8 AM He had a VQ scan which showed high probability for pulmonary embolism and he was on IV heparin VQ mismatch noted in the right upper lobe as well as left lower lobe Twelve-lead ECG showed atrial fibrillation with T-wave inversions Lower extremity Doppler showed DVT left leg When I saw him he was mildly short of breath and a bit wheezy. He was on IV heparin His rhythm was irregular no murmurs The left posterior lung mckinley had decreased breath sounds Mild scattered rhonchi Afebrile 97.5 Pulse rate in the 70s, mildly short of breath at rest Blood pressure 126/72 mmHg Labs Elevated white count of 11.7 thousand, with global 14.5 Elevated d-dimer consistent with DVT and pulmonary embolism BUN and creatinine 33/1.27 normal electrolytes Normal troponins Impression DVT Bilateral pulmonary emboli On IV heparin now Upon admission subtherapeutic INRs, patient has persistent atrial fibrillation Suggest Continue IV heparin Management of DVT and pulmonary embolism per pulmonary medicine 2-D echo and Doppler study to assess RV size and function given T-wave inversions Vascular consult awaited Objective - Vital Signs Vital signs: Vital Signs Temp 97.5 F L 03/26/20 07:00 Pulse 0 L 03/26/20 16:30 Resp 0 L 03/26/20 16:30 BP 76/23 03/26/20 16:00 Pulse Ox 97 03/26/20 07:00 - Labs CBC & Chem 7: 03/26/20 07:05 03/26/20 15:16 Labs: Microbiology - Last 24 Hours (Table) 03/24/20 17:00 Blood Culture - Preliminary Blood No Growth after 72 hours
--- NOTE | 2020-03-28 15:22 | CDI ---
Documentation Clarification Form Date: 03/28/20 From: Gema Hardy Phone: If you have a question about this query, please contact Samantha Faulkner, System Sales Consultant at [phone] between 8am and 5pm. Admit Date: 03/26/20 Discharge Date: 03/26/20 Patient Name: AUBREY LUA Visit Number: [id number] ATTENTION: The Clinical Documentation Specialists (CDI) and [facility] Coding Staff appreciate your assistance in clarifying documentation. Please respond to the clarification below the line at the bottom and electronically sign. The CDI & [facility] Coding staff will review the response and follow-up if needed. Please note: Queries are made part of the Legal Health Record. If you have any questions, please contact the author of this message via ITS. Dear Dr. Antonette Urbina, The diagnosis possible sepsis was documented in the H&P and PNs & 03/26, but is not noted in subsequent documentation. History/Risk Factors: COPD exacerbation, severe bronchitis. Clinical Indicators: UTI and possible sepsis, UA was positive, mild elevated WBC and lactic acid was negative. Treatment: IV Rocephin Please clarify if the sepsis was Ruled out Present/active/treated this admission Other, please specify Clinically unable to determine MTDD
--- NOTE | 2020-03-28 15:32 | CDI ---
Documentation Clarification Form Date: 03/28/20 From: Gema Hardy Phone: If you have a question about this query, please contact Samantha Faulkner, Hematology Technician at [phone] between 8am and 5pm. Admit Date: 03/26/20 Discharge Date: 03/26/20 Patient Name: AUBREY LUA Visit Number: [id number] ATTENTION: The Clinical Documentation Specialists (CDI) and [facility] Coding Staff appreciate your assistance in clarifying documentation. Please respond to the clarification below the line at the bottom and electronically sign. The CDI & [facility] Coding staff will review the response and follow-up if needed. Please note: Queries are made part of the Legal Health Record. If you have any questions, please contact the author of this message via ITS. Dear Dr. Antonette Urbina, The diagnosis acute respiratory failure was documented in your procedure note, but is not noted in subsequent documentation. History/Risk Factors: COPD exacerbation, severe bronchitis, PE, DVT, cardiac arrest, acute on chronic systolic CHF w HTN and CKD stage III 03/26 Clinical Indicators: CO2-28 & 21 03/26 Vital signs: P-0/62/30/15/0/ 0/0; R-30/46/21/2/16/0/0; BP-76/23 Treatment: Intubated during CPR Please clarify if the acute respiratory failure was Hypoxic Hypercapnia Hypercarbia Other, please specify Clinically unable to determine MTDD
--- NOTE | 2020-03-28 15:44 | CDI ---
Documentation Clarification Form Date: 03/28/20 From: Gema Hardy Phone: If you have a question about this query, please contact Samantha Faulkner, Client Relations Specialist at [phone] between 8am and 5pm. Admit Date: 03/26/20 Discharge Date: 03/26/20 Patient Name: AUBREY LUA Visit Number: [id number] ATTENTION: The Clinical Documentation Specialists (CDI) and [facility] Coding Staff appreciate your assistance in clarifying documentation. Please respond to the clarification below the line at the bottom and electronically sign. The CDI & [facility] Coding staff will review the response and follow-up if needed. Please note: Queries are made part of the Legal Health Record. If you have any questions, please contact the author of this message via ITS. Dear Dr. Antonette Urbina, 03/26 troponin of: 0.150 Patient history/risk factors: COPD exacerbation, severe bronchitis, PE, DVT, cardiac arrest, acute on chronic systolic CHF w HTN and CKD stage III Clinical indicators: Cardiac arrest w CPR x 2 03/26 EKG: ST elevation consider anterior injury or acute infarct. Vent: 140 bpm, QRS-98, QT/QTc-300/458 Treatment: CPR w intubation In your professional opinion, can you please specify the diagnosis, if any, indicated by the above clinical indicators and treatment? NSTEMI STEMI Non Q Wave MN Type II MN Other, please specify Unable to determine MTDD
--- NOTE | 2020-03-29 09:46 | CDI ---
Documentation Clarification Form Date: 03/28/20 From: Gema Hardy Phone: If you have a question about this query, please contact Samantha Faulkner, Insulation Worker Interior Surface at [phone] between 8am and 5pm. Admit Date: 03/26/20 Discharge Date: 03/26/20 Patient Name: AUBREY LUA Visit Number: [id number] ATTENTION: The Clinical Documentation Specialists (CDI) and [facility] Coding Staff appreciate your assistance in clarifying documentation. Please respond to the clarification below the line at the bottom and electronically sign. The CDI & [facility] Coding staff will review the response and follow-up if needed. Please note: Queries are made part of the Legal Health Record. If you have any questions, please contact the author of this message via ITS. Dear Dr. Eduardo Man, The diagnosis possible sepsis was documented in the H&P and PNs & 03/26, but is not noted in subsequent documentation. History/Risk Factors: COPD exacerbation, severe bronchitis. Clinical Indicators: UTI and possible sepsis, UA was positive, mild elevated WBC and lactic acid was negative. Treatment: IV Rocephin Please clarify if the sepsis was Ruled out XX Present/active/treated this admission Other, please specify Clinically unable to determine MTDD
--- NOTE | 2020-03-29 09:48 | CDI ---
Documentation Clarification Form Date: 03/28/20 From: Gema Hardy Phone: If you have a question about this query, please contact Samantha Faulkner, Elevator Service Mechanic at [phone] between 8am and 5pm. Admit Date: 03/26/20 Discharge Date: 03/26/20 Patient Name: AUBREY LUA Visit Number: [id number] ATTENTION: The Clinical Documentation Specialists (CDI) and [facility] Coding Staff appreciate your assistance in clarifying documentation. Please respond to the clarification below the line at the bottom and electronically sign. The CDI & [facility] Coding staff will review the response and follow-up if needed. Please note: Queries are made part of the Legal Health Record. If you have any questions, please contact the author of this message via ITS. Dear Dr. Eduardo Man, The diagnosis acute respiratory failure was documented in your procedure note, but is not noted in subsequent documentation. History/Risk Factors: COPD exacerbation, severe bronchitis, PE, DVT, cardiac arrest, acute on chronic systolic CHF w HTN and CKD stage III 03/26 Clinical Indicators: CO2-28 & 21 03/26 Vital signs: P-0/62/30/15/0/ 0/0; R-30/46/21/2/16/0/0; BP-76/23 Treatment: Intubated during CPR Please clarify if the acute respiratory failure was Hypoxic XX Hypercapnia Hypercarbia Other, please specify Clinically unable to determine MTDD
--- NOTE | 2020-03-29 09:49 | CDI ---
Documentation Clarification Form Date: 03/28/20 From: Gema Hardy Phone: If you have a question about this query, please contact Samantha Faulkner, Production Laborer at [phone] between 8am and 5pm. Admit Date: 03/26/20 Discharge Date: 03/26/20 Patient Name: AUBREY LUA Visit Number: [id number] ATTENTION: The Clinical Documentation Specialists (CDI) and [facility] Coding Staff appreciate your assistance in clarifying documentation. Please respond to the clarification below the line at the bottom and electronically sign. The CDI & [facility] Coding staff will review the response and follow-up if needed. Please note: Queries are made part of the Legal Health Record. If you have any questions, please contact the author of this message via ITS. Dear Dr. Eduardo Man, 03/26 troponin of: 0.150 Patient history/risk factors: COPD exacerbation, severe bronchitis, PE, DVT, cardiac arrest, acute on chronic systolic CHF w HTN and CKD stage III Clinical indicators: Cardiac arrest w CPR x 2 03/26 EKG: ST elevation consider anterior injury or acute infarct. Vent: 140 bpm, QRS-98, QT/QTc-300/458 Treatment: CPR w intubation In your professional opinion, can you please specify the diagnosis, if any, indicated by the above clinical indicators and treatment? XX NSTEMI STEMI Non Q Wave VT Type II VT Other, please specify Unable to determine MTDD
--- NOTE | 2020-04-02 12:31 | P.DS ---
Providers Date of admission: 03/26/20 09:07 Expected date of discharge: 04/02/20 Attending physician: Eduardo Man Consults: 03/24/20 15:58 Consult Physician Urgent Consulting Provider: [facility] Consult Reason/Comments: exterional dyspnea Do you want consulting provider notified?: Yes 03/25/20 10:06 Consult Physician Routine Consulting Provider: Phillip Mckee Consult Reason/Comments: COPD Do you want consulting provider notified?: Yes 03/25/20 23:32 Consult Physician Routine Consulting Provider: Swapnil Noriega Consult Reason/Comments: DVT Do you want consulting provider notified?: Yes Primary care physician: Israel [facility] Course: 79-year-old male one of Dr. Ruiz patient with past medical history of CAD, A. fib, chronic kidney disease, hypertension, hyperlipidemia and type 2 diabetes who has been doing well until the last few days when developed to have significant and worsening shortness of breath associated with lighth eadedness and dizziness and fogginess along with mild altered mental status low- grade temperature no chills patient declined any chest pain angina type. Has been having mild cough with mild shortness of breath and wheezes also has been having vague symptom not a clear with slight worsening memory loss. He has been taking his medication regularly his and A. fib with RVR has been on warfarin his INR was subtherapeutic and patient admits sometimes he forgets taking his medication. Patient was evaluated at [facility] found to have chest x- ray consistent with cardiomegaly and mild COPD. CAT scan of the brain showed multiple encephalomalacia of the) telemetry area along with multiple small area of small vessel disease with no major acute stroke found. White blood cell was mildly elevated at 13.3 with left shifted patient urine was very positive with multiple leukocyte and WBC with few RBC at the time. Patient was diagnosed with COPD exacerbation, slight bronchitis, urinary tract infection with possible sepsis along with mild altered mental status consistent with infection and hypoxia. Patient was started on O2 MDI inhaler started on IV Rocephin at the time will add Levaquin patient be admitted to the hospital will consult pulmonary and have slight more aggressive management for COPD including systemic steroid at 40 mg every 8 hours his Covid 19 was negative. 03/25: Patient is feeling slightly but better will be seen pulmonary continue Solu-Medrol along with MDI bedtime agonist and Pulmicort continue to treat patient severe bronchitis and UTI Will add Levaquin to his medication regime at this point is feeling slightly but better compared to yesterday. 03/26: Patient ended up going for Doppler of the left leg yesterday came back positive for DVT also had VQ scan was positive for pulmonary embolism, patient was started on heparin drip and long talk with patient and pulmonary about the possibility of changing him from warfarin to one of the new agent for more st ability on the long run. Patient developed cardiac arrest and on the late afternoon of 03/26. Please see documentation for details. Discharge diagnoses: Cardiac arrest secondary to bilateral pulmonary embolism--preliminary cause of Acute hypoxic respiratory failure secondary to bilateral pulmonary embolism and possible COPD exacerbation Elevated liver function tests secondary to shock liver Non-ST elevated myocardial infarction COPD exacerbation Urinary tract infection and possible sepsis, poa Severe bronchitis most likely early pneumonitis in the right base DVT of the left leg and pulmonary embolism Diabetes mellitus type 2, uncontrolled with hyperglycemia CAD post CABG Persistent atrial fibrillation Acute kidney injury with CKD stage III Hypertension Hypothyroidism Chronic gout Hyperlipidemia BPH Impression and plan of care have been directed as dictated by the signing physician. Amarilis Crawford nurse practitioner acting as scribe for signing physician. Patient Condition at Discharge: Undetermined Plan - Discharge Summary New Discharge Prescriptions: No Action Warfarin [Coumadin] 2.5 mg PO SUMOWEFR Potassium Chloride ER [K-Dur 20] 20 meq PO BID Warfarin [Coumadin] 5 mg PO TUTHSA Furosemide [Lasix] 40 mg PO DAILY Enalapril [Vasotec] 5 mg PO DAILY Atenolol [Tenormin] 50 mg PO BID Tamsulosin HCl [Flomax] 0.4 mg PO DAILY Levothyroxine Sodium [Synthroid] 112 mcg PO DAILY Atorvastatin [Lipitor] 40 mg PO DAILY Allopurinol [Zyloprim] 100 mg PO DAILY Discharge Medication List Allopurinol [Zyloprim] 100 mg PO DAILY 03/24/20 [History] Atenolol [Tenormin] 50 mg PO BID 03/24/20 [History] Atorvastatin [Lipitor] 40 mg PO DAILY 03/24/20 [History] Enalapril [Vasotec] 5 mg PO DAILY 03/24/20 [History] Furosemide [Lasix] 40 mg PO DAILY 03/24/20 [History] Levothyroxine Sodium [Synthroid] 112 mcg PO DAILY 03/24/20 [History] Potassium Chloride ER [K-Dur 20] 20 meq PO BID 03/24/20 [History] Tamsulosin HCl [Flomax] 0.4 mg PO DAILY 03/24/20 [History] Warfarin [Coumadin] 2.5 mg PO SUMOWEFR 03/24/20 [History] Warfarin [Coumadin] 5 mg PO TUTHSA 03/24/20 [History] Follow up Appointment(s)/Referral(s): Israel Ruiz DO [Primary Care Provider] - 1-2 days Discharge Disposition: - Preliminary Cause of Preliminary Cause of : Cardiac arrest secondary to bilateral pulmonary embolism
== END 2020-03-26 17:39 | disposition expired | DRG 208 ==
LOC: EC 12:12 → 4SSUR 15:56 → OBSVTOIN 03-26 09:07 → 2SICU 03-26 15:23
PROVIDERS: ADMIT Internal Medicine Geriatric Medicine; ATTEND Internal Medicine Geriatric Medicine
PROC: 5A1935Z Respiratory Ventilation, Less than 24 Consecutive Hours (ICD-10-PCS; principal; 2020-03-26)
PROC: 3E033XZ Introduction of Vasopressor into Peripheral Vein, Percutaneous Approach (ICD-10-PCS; principal; 2020-03-26)
PROC: 5A12012 Performance of Cardiac Output, Single, Manual (ICD-10-PCS; principal; 2020-03-26)
PROC: 0BH17EZ Insertion of Endotracheal Airway into Trachea, Via Natural or Artificial Opening (ICD-10-PCS; principal; 2020-03-26)
DX: I26.99 Other pulmonary embolism without acute cor pulmonale (principal); A41.9 Sepsis, unspecified organism; K72.00 Acute and subacute hepatic failure without coma; J96.02 Acute respiratory failure with hypercapnia; J96.01 Acute respiratory failure with hypoxia; I21.4 Non-ST elevation (NSTEMI) myocardial infarction; I50.23 Acute on chronic systolic (congestive) heart failure; J18.9 Pneumonia, unspecified organism; J44.0 Chronic obstructive pulmonary disease with (acute) lower respiratory infection; J44.1 Chronic obstructive pulmonary disease with (acute) exacerbation; N17.9 Acute kidney failure, unspecified; I13.0 Hypertensive heart and chronic kidney disease with heart failure and stage 1 through stage 4 chronic kidney disease, or unspecified chronic kidney disease; I67.89 Other cerebrovascular disease; I48.19 Other persistent atrial fibrillation; N39.0 Urinary tract infection, site not specified; I82.412 Acute embolism and thrombosis of left femoral vein; I46.8 Cardiac arrest due to other underlying condition; N18.3 Chronic kidney disease, stage 3 (moderate); E11.36 Type 2 diabetes mellitus with diabetic cataract; E11.22 Type 2 diabetes mellitus with diabetic chronic kidney disease; E11.65 Type 2 diabetes mellitus with hyperglycemia; Z11.59 Encounter for screening for other viral diseases; G93.89 Other specified disorders of brain; R40.2362 Coma scale, best motor response, obeys commands, at arrival to emergency department; R40.2244 Coma scale, best verbal response, confused conversation, 24 hours or more after hospital admission; R40.2144 Coma scale, eyes open, spontaneous, 24 hours or more after hospital admission; R40.2252 Coma scale, best verbal response, oriented, at arrival to emergency department; R40.2142 Coma scale, eyes open, spontaneous, at arrival to emergency department; R40.2364 Coma scale, best motor response, obeys commands, 24 hours or more after hospital admission; N40.0 Benign prostatic hyperplasia without lower urinary tract symptoms; H26.9 Unspecified cataract; J20.9 Acute bronchitis, unspecified; E78.5 Hyperlipidemia, unspecified; I69.911 Memory deficit following unspecified cerebrovascular disease; E03.9 Hypothyroidism, unspecified; I25.10 Atherosclerotic heart disease of native coronary artery without angina pectoris; M1A.9XX0 Chronic gout, unspecified, without tophus (tophi); R79.1 Abnormal coagulation profile; T45.516A Underdosing of anticoagulants, initial encounter; Z91.130 Patient's unintentional underdosing of medication regimen due to age-related debility; Z79.01 Long term (current) use of anticoagulants; Z79.890 Hormone replacement therapy; Z79.899 Other long term (current) drug therapy; Z95.1 Presence of aortocoronary bypass graft; Z87.891 Personal history of nicotine dependence; Z86.718 Personal history of other venous thrombosis and embolism; Z87.440 Personal history of urinary (tract) infections; Y63.6 Underdosing and nonadministration of necessary drug, medicament or biological substance; Z82.49 Family history of ischemic heart disease and other diseases of the circulatory system
CPT/HCPCS: 36415; 70450; 71046; 78582; 80053; 81001; 82550; 83036; 83605; 83735; 83880; 84100; 84484; 85025; 85379; 85610; 85730; 87040; 87086; 87635; 92950; 93005; 94640; 96365; 96375; 99285